=== PATIENT | female | born 1970 | race Caucasian/White ===

== ENCOUNTER → 2023-10-22 11:10 | Outpatient (REF) | payer OTHER, SELFPAY | LOC: RAD 11:10 | PROVIDERS: ATTENDING PHYSICIAN Physician Assistant Medical | DX: R10.31 Right lower quadrant pain (principal); R19.4 Change in bowel habit | CPT/HCPCS: 74177; Q9967 ==

== ENCOUNTER → 2023-10-31 08:34 | Outpatient (REF) | payer OTHER, SELFPAY | LOC: RAD 08:34 | PROVIDERS: ATTENDING PHYSICIAN Physician Assistant Medical | DX: Z13.820 Encounter for screening for osteoporosis (principal) | CPT/HCPCS: 77080 ==

== ENCOUNTER → 2023-11-28 08:36 | Outpatient (REF) | payer OTHER, SELFPAY ==
[2023-11-28 09:23] LABS: % Basophils 0.7 % (0-2); % Eosinophils 1.2 % (0-6); % Immature Granulocytes 0.3 % (0-0.5); % Lymphocytes 44.3 % (20.5-51.1); % Neutrophils 46.5 % (42.2-75.2); Absolute Eosinophils 0.1 10^3/uL (0-0.7); Absolute Lymphocytes 2.6 10^3/uL (1.2-3.4); Absolute Monocytes 0.4 10^3/uL (0.1-0.6); Absolute Neutrophils 2.7 10^3/uL (1.4-6.5); Hematocrit 37.9 % (37.0-47.0); Hemoglobin 12.6 g/dL (12.0-16.0); Mean Corp Hgb Conc. 33.2 g/dL (33.0-37.0); Mean Corpuscular Hgb 28.4 pg (27.0-31.0); Mean Corpuscular Volume 85.4 fL (81.0-99.0); Mean Platelet Volume 10.6 fL (7.4-10.4); Nucleated Red Blood Cells % 0 %; Platelet Count 256 10^3/uL (130-400); Red Blood Cell Count 4.44 10^6/uL (4.20-5.40); Red Cell Dist. Width 13.9 % (11.5-14.5); White Blood Cell Count 5.8 10^3/uL (4.8-10.8)
[2023-11-28 10:22] LABS: ALT (SGPT) 37 U/L (0-35); AST (SGOT) 26 U/L (14-36); Albumin 4.4 g/dl (3.5-5.0); Alkaline Phosphatase 116 U/L (38-126); Blood Urea Nitrogen 19 mg/dl (7-17); Calcium 9.8 mg/dl (8.4-10.2); Carbon Dioxide 28 mmol/L (22-30); Chloride 103 mmol/L (98-107); Glucose 112 mg/dl (70-99); HDL Cholesterol 47 mg/dl; LDL Cholesterol, Calculated 127 mg/dl; Potassium 4.3 mmol/L (3.5-5.1); Sodium 140 mmol/L (135-145); Total Bilirubin 0.6 mg/dl (0.2-1.3); Total Cholesterol 212 mg/dl (50-199); Total Protein 7.3 g/dl (6.3-8.2); Triglyceride 193 mg/dl (10-149); Very Low Density Lipoprotein 38 mg/dl (0-30); eGFR > 60.00
[2023-11-28 10:35] LABS: Free T4 1.27 ng/dl (0.78-2.19)
[2023-11-28 10:49] LABS: TSH 3.09 uIU/ml (0.47-4.68)
[2023-11-28 12:03] LABS: Glycohemoglobin (HgbA1c) 6.1 % (4.0-5.6)
== END ==
LOC: REG 08:36
PROVIDERS: ATTENDING PHYSICIAN Physician Assistant Medical
DX: Z00.00 Encounter for general adult medical examination without abnormal findings (principal); E78.2 Mixed hyperlipidemia; E03.9 Hypothyroidism, unspecified
CPT/HCPCS: 36415; 80053; 80061; 83036; 84439; 84443; 85025

== ENCOUNTER → 2024-02-10 14:13 | Outpatient (REF) | payer OTHER, SELFPAY | LOC: WDC 14:13 | PROVIDERS: ATTENDING PHYSICIAN Physician Assistant; FAMILY PHYSICIAN Physician Assistant Medical | DX: N64.59 Other signs and symptoms in breast (principal) | CPT/HCPCS: 76642 ==

== ENCOUNTER → 2024-05-01 15:45 | Outpatient (REF) | payer OTHER, SELFPAY ==
[2024-05-01 18:54] LABS: Urine Albumin Negative (Neg - Trace); Urine Bilirubin Negative (Negative); Urine Character Very Cloudy (Clear); Urine Color Yellow; Urine Glucose Negative (Negative); Urine Ketone Negative (Negative); Urine Leukocyte Negative (Negative); Urine Nitrite Negative (Negative); Urine Occult Blood Negative (Negative); Urine Specific Gravity 1.025 (<1.030); Urine Urobilinogen Negative (Neg - 1+)
== END ==
LOC: CLAB 15:45
PROVIDERS: ATTENDING PHYSICIAN Obstetrics & Gynecology
DX: N39.0 Urinary tract infection, site not specified (principal)
CPT/HCPCS: 36415; 81003; 87086

== ENCOUNTER → 2024-07-08 16:51 | Outpatient (REF) | payer OTHER, SELFPAY | LOC: RAD 16:51 | PROVIDERS: ATTENDING PHYSICIAN Surgery Plastic and Reconstructive Surgery; FAMILY PHYSICIAN Physician Assistant Medical | DX: Z90.13 Acquired absence of bilateral breasts and nipples (principal) | CPT/HCPCS: 74174; Q9967 ==

== ENCOUNTER → 2024-09-07 15:49 | Outpatient (REF) | payer OTHER, SELFPAY ==
[2024-09-07 17:47] LABS: % Basophils 0.8 % (0-2); % Immature Granulocytes 0.2 % (0-0.5); % Lymphocytes 40.6 % (20.5-51.1); % Monocytes 9.3 % (1.7-9.3); % Neutrophils 48.1 % (42.2-75.2); Absolute Basophils 0.1 10^3/uL (0-0.2); Absolute Eosinophils 0.1 10^3/uL (0-0.7); Absolute Lymphocytes 2.5 10^3/uL (1.2-3.4); Absolute Monocytes 0.6 10^3/uL (0.1-0.6); Absolute Neutrophils 2.9 10^3/uL (1.4-6.5); Hematocrit 36.2 % (37.0-47.0); Hemoglobin 11.9 g/dL (12.0-16.0); Mean Corp Hgb Conc. 32.9 g/dL (33.0-37.0); Mean Corpuscular Hgb 28.7 pg (27.0-31.0); Mean Corpuscular Volume 87.2 fL (81.0-99.0); Mean Platelet Volume 10.8 fL (7.4-10.4); Nucleated Red Blood Cells % 0 %; Platelet Count 213 10^3/uL (130-400); Red Blood Cell Count 4.15 10^6/uL (4.20-5.40); Red Cell Dist. Width 13.6 % (11.5-14.5)
[2024-09-07 17:58] LABS: ALT (SGPT) 40 U/L (0-35); AST (SGOT) 29 U/L (14-36); Albumin 4.2 g/dl (3.5-5.0); Alkaline Phosphatase 99 U/L (38-126); Blood Urea Nitrogen 17 mg/dl (7-17); Calcium 9.2 mg/dl (8.4-10.2); Carbon Dioxide 28 mmol/L (22-30); Chloride 102 mmol/L (98-107); Glucose 107 mg/dl (70-99); Sodium 139 mmol/L (135-145); Total Bilirubin 0.4 mg/dl (0.2-1.3); Total Protein 6.8 g/dl (6.3-8.2); eGFR > 60.00
== END ==
LOC: RAD 15:49
PROVIDERS: ATTENDING PHYSICIAN Surgery Plastic and Reconstructive Surgery; FAMILY PHYSICIAN Surgery
DX: Z01.818 Encounter for other preprocedural examination (principal)
CPT/HCPCS: 36415; 80053; 85025; 93005

== ENCOUNTER 2024-09-30 06:06 | Inpatient (IN) | payer OTHER, SELFPAY ==
[2024-09-30] VITALS (18 sets, daily range): BP systolic 99–135; BP diastolic 62–86; BMI 32.4; BMI 33.9
[2024-09-30] MEDS: LOVENOX 40 MG SC (07:03)
[2024-09-30] MEDS: NORMOSOL-R/PLASMALYTE-A 1000 IV (07:11)
--- NOTE | 2024-09-30 07:29 | W.SUR.PREOP ---
Pre-Operative Surgical Note
-
I have examined this patient prior to the performance of the scheduled procedure.
The patient's condition is unchanged from the time of the current History and
Physical and the patient is able to undergo the scheduled procedure.
--- NOTE | 2024-09-30 17:15 | W.IMMPOSTOP ---
Surgical Immed Post Op Note
-
Primary Surgeon: MERARY Christensen MD
Assisting Surgeon: Elizabeth Liriano MD, Wendi Sanderson MD
Pre-op Diagnosis: h/o breast CA
Post-op Diagnosis: Same
Procedure Performed: Removal of bilateral breast implants, VANNESA flap breast reconstruction
Anesthesia Type: General
Specimen / Cultures: internal mammary lymph nodes, capsule for path
Estimated Blood Loss: 200cc
Complications: None
Operative Findings: as expected, no issues with micro, well perfused flaps
--- NOTE | 2024-09-30 17:15 | OR.RPT ---
Operative Report
Operative Report
Date of Surgery: 09/30/24
Surgeon: Harry Christensen MD
Assembler Dc Field Ring/Co surgeon: Elizabeth Liriano MD
Second Medical Recruiter: Wendi Sanderson MD
Pre-op diagnosis:
1.� Personal history of breast cancer
2. Status post bilateral mastectomies with implant based breast reconstruction
Postop diagnosis: Same
Procedure:
1.� Bilateral removal of saline breast implants without replacement
2.� Bilateral internal mammary lymph node biopsy
3. Bilateral capsulotomies and partial capsulectomies
4. Bilateral breast reconstruction with VANNESA flaps
6. Spy angiography
Anesthesia: General
EBL: 200 cc
Specimens:
1.� Right internal mammary lymph node
2. Right mastectomy skin and soft tissue
3.� Left mastectomy skin and soft tissue
4.� Left internal mammary lymph node
Drains: 4 15 Swedish Nas drains
Complications: none
Indications:
This is a 54-year-old female with a past medical history significant for breast cancer with prior implant based reconstruction done in [facility].� Her right implant had spontaneously deflated. She was interested in moving forward with autologous
reconstruction. Given the anticipated bilateral VANNESA flap breast reconstruction, I asked Dr. Elizabeth Liriano to be involved in her care given the complexity of the case and the need for a second surgeon to do this as safely and efficiently as possible.
Regarding bilateral free flap breast reconstruction,� she understood the nature of the surgery and all of the risk benefits alternatives were discussed at length.� Specific risks included flap failure or thrombosis, hematoma, seroma, poor wound
healing and compromise to the abdominal wall.� All questions were answered and consents were signed.
Operative findings:
The patient was identified in the preoperative area and consents were confirmed. The bilateral breasts were marked out as was the elliptical infraumbilical donor site. All questions were answered. She was brought to the operating room and placed
supine on the operative table.� General anesthesia was induced with an endotracheal tube. The arms were tucked bilaterally and a Issa catheter was placed.� Preoperative Lovenox and antibiotics were administered, and SCDs were placed.� The patient's
bilateral breasts and abdomen were prepped and draped in normal standard fashion using chlorhexidine prep.� A timeout for patient safety was performed.
To start the procedure, Dr. Liriano and I were in the abdomen to initiate the dissection of the abdominal flaps. I dissected the right abdominal flap for left breast reconstruction and Dr. Liriano worked on the left abdomen for right breast
reconstruction. Dr. Liriano assisted me with my portions of the case, and I assisted him with his portions of the case. Please see Dr. Sanderson and Dr. Liriano's separately dictated operative notes. Once I started the intramuscular dissection of the
right flap, Dr. Liriano went up to the chest to prepare the vessels for microvascular transfer and at this time we began functioning as 2 separate teams.
In the abdomen, bilateral VANNESA flaps were dissected out. This began with incising the proposed markings superiorly and dissection with a slight bevel upwards to the level of the fascia. Undermining of the supraumbilical flap continue in the midline
above the umbilicus to the xiphoid. Laterally, this extended to the costal margin. The patient was then flexed at the waist and the lower incision was confirmed to be tenable without undue tension. The patient was returned supine and the lower
marking was incised with a 10 blade. The flaps were then raised laterally to medially be sure to maintain the perforating vessels above the level of the fascia.� On the right side a 2 compressor house operator VANNESA flap was dissected out.� Similarly on the left
side a 4 compressor house operator VANNESA flap had been dissected out.�This involved a tedious intramuscular dissection to minimize the amount of muscle harvested with the flap. The pedicles were dissected down to level of the iliac vessels.
In the chest, the implants were removed bilaterally. Extensive capsulotomies were made to adjust the pockets and a partial capsulectomy was also performed. On the left side, the pectoralis muscle was then split over the third intercostal rib and the
cartilaginous portion of the rib was excised.� The underlying internal mammary vessels were then meticulously and carefully dissected.�Internal mammary lymph nodes were encountered bilaterally and this was excised and sent off for pathologic
evaluation. Once the vessels were fully dissected circumferentially these were allowed to dilate up while attention was turned to the contralateral breast.� A pectoralis block was then performed with marcaine and a 15 Swedish Nas drain was placed
through a stab incision the lateral IMF.� This was secured using a 2-0 Prolene suture.
On the right side, the identical procedure was performed except that the pec was too fibrotic and tethered superiorly to reinset along the chest wall. Again this involved rib resection, and internal mammary vessel dissection.� These vessels were
similarly prepared and allowed to dilate up with papaverine soaked neuro patties. A pectoralis block was similarly performed on this side and a 19 Swedish Nas drain was also placed through a stab incision in the lateral IMF on this side due to the
history of infection. An internal mammary lymph node was also noted on the right side. This was dissected out and sent off for pathologic evaluation.
The right hemiabdominal flap was then transferred up to the left chest first. The microvascular anastomosis was then performed.� This was done using a 2.5mm bed laborer for the venous anastomosis.� The arterial anastomosis was performed with a handsewn
technique using 8-0 nylon suture.� Upon removal of the microvascular clamps there was excellent perfusion of the flap.� The flap was then temporarily inset with deepak and attention was turned to the contralateral side.
The left hemiabdominal flap was then transferred up to the right chest.� The microvascular anastomosis was similarly performed.� On this side a 3.5mm bed laborer was again utilized for the venous anastomosis.� The arterial anastomosis was performed in
the same fashion as the contralateral side.� Again there was excellent perfusion noted upon removal of the vascular clamps.
While the microvascular anastomoses were being performed, Dr. Sanderson was performing the abdominal wall reconstruction.� Again please see her separately dictated operative report for details. Briefly, this involved reapproximation of the muscles
that was divided.� A small piece of Phasix mesh was inset as a underlay with primary fascial closure.� The fascia was closed with interrupted PDS sutures.�
A TAP block was performed bilaterally for postoperative analgesia.� Two 15 Swedish Nas drains were placed in the abdomen.� These were similarly secured using 2-0 Prolene sutures.� The abdominal wall was then closed in a layered fashion.� 2-0 Vicryl
suture was utilized in the Nasir's fascia.� The Insorb dermal stapler was then utilized for reapproximation of the deep dermis.� The superficial skin was then closed using 4-0 Monocryl suture.� The umbilicus was transposed.� This was inset using a
combination of 3-0 Monocryl in the deep dermis and 4-0 nylon suture superficially.
SPY Angiography was then performed to assess the flaps as well as the mastectomy skin. Excellent perfusion was noted throughout. The VANNESA flaps were then inset. The skin was then closed in a layered fashion using 3-0 and 4-0 Monocryl suture.� The
VANNESA flaps were de-epithelialized in all areas that would not be exposed prior to closure.
Doppler signals were identified on both skin islands and there was good punctate bleeding at time of deepithelialization. Signals were marked with 5-0 prolenes.
The wounds were then all dressed and the patient was extubated uneventfully.� All counts were correct at the the completion of the case.� The patient tolerated the procedure very well.� She had an excellent cosmetic outcome.� The patient was then
transferred to the ICU for postoperative�monitoring.
I was the primary surgeon for the left VANNESA flap breast reconstruction and Dr. Liriano was the primary surgeon for the right side. I assisted him in all aspects of his surgery and he assisted me throughout my procedure and we functioned as cosurgeons
throughout the case so that we could operate in 2 separate surgical salcido at all times to maximize safety and efficiency.
Dr. Wendi Sanderson was our second assistant store manager trainee for this case.� Her assistance was critical and medically necessary to allow us to perform this in a safe and timely manner for this patient.� She assisted with retraction, execution, and closure of this
case. She also was responsible for the abdominal wall reconstruction as a primary surgeon.
--- NOTE | 2024-09-30 17:25 | OR.RPT ---
Operative Report
Operative Report
Surgeon: Elizabeth Liriano MD
Insurance Sales Agent: Harry Christensen MD
Second Wind Development Director: Wendi Sanderson MD
Pre-op diagnosis:
1.� Personal history of breast cancer
2. Status post bilateral mastectomies with implant based breast reconstruction
Postop diagnosis: Same
Procedure:
1.� Bilateral removal of saline breast implants without replacement
2.� Bilateral internal mammary lymph node biopsy
3. Bilateral capsulotomies and partial capsulectomies
4. Bilateral breast reconstruction with VANNESA flaps
6. Spy angiography
Anesthesia: General
EBL: 200 cc
Specimens:
1.� Right internal mammary lymph node
2. Right mastectomy skin and soft tissue
3.� Left mastectomy skin and soft tissue
4.� Left internal mammary lymph node
Drains: 4 15 [place]ij[place] Nas drains
Complications: none
Indications:
This is a 54-year-old female with a past medical history significant for breast cancer [place]� Her right implant had spontaneously deflated. She was interested in moving forward with
autologous reconstruction. Given the anticipated bilateral VANNESA flap breast reconstruction, I was asked to be involved in her care given the complexity of the case and the need for a second surgeon to do this as safely and efficiently as possible.
Regarding bilateral free flap breast reconstruction,� she understood the nature of the surgery and all of the risk benefits alternatives were discussed at length.� Specific risks included flap failure or thrombosis, hematoma, seroma, poor wound
healing and compromise to the abdominal wall.� All questions were answered and consents were signed.
Operative findings:
The patient was identified in the preoperative area and consents were confirmed. The bilateral breasts were marked out as was the elliptical infraumbilical donor site. All questions were answered. She was brought to the operating room and placed
supine on the operative table.� General anesthesia was induced with an endotracheal tube. The arms were tucked bilaterally and a Issa catheter was placed.� Preoperative Lovenox and antibiotics were administered, and SCDs were placed.� The patient's
bilateral breasts and abdomen were prepped and draped in normal standard fashion using chlorhexidine prep.� A timeout for patient safety was performed.
To start the procedure, Dr. Christensen and I were in the abdomen to initiate the dissection of the abdominal flaps. I dissected the left abdominal flap for right breast reconstruction and Dr. Christensen worked on the right abdomen for left breast
reconstruction. Dr. Christensen assisted me with my portions of the case, and I assisted him with his portions of the case. Please see Dr. Sanderson and Dr. Christensen's separately dictated operative notes. Once Dr. Christensen started his intramuscular dissection
of his flap, i went up to the chest to prepare the vessels for microvascular transfer and at this time we began functioning as 2 separate teams.
In the abdomen, bilateral VANNESA flaps were dissected out. This began with incising the proposed markings superiorly and dissection with a slight bevel upwards to the level of the fascia. Undermining of the supraumbilical flap continue in the midline
above the umbilicus to the xiphoid. Laterally, this extended to the costal margin. The patient was then flexed at the waist and the lower incision was confirmed to be tenable without undue tension. The patient was returned supine and the lower
marking was incised with a 10 blade. The flaps were then raised laterally to medially be sure to maintain the perforating vessels above the level of the fascia.� On the right side a 2 implementation technician VANNESA flap was dissected out.� Similarly on the left
side a 4 implementation technician VANNESA flap had been dissected out.�This involved a tedious intramuscular dissection to minimize the amount of muscle harvested with the flap. The pedicles were dissected down to level of the iliac vessels.
In the chest, the implants were removed bilaterally. Extensive capsulotomies were made to adjust the pockets and a partial capsulectomy was also performed. On the left side, the pectoralis muscle was then split over the third intercostal rib and the
cartilaginous portion of the rib was excised.� The underlying internal mammary vessels were then meticulously and carefully dissected.�Internal mammary lymph nodes were encountered bilaterally and this was excised and sent off for pathologic
evaluation. Once the vessels were fully dissected circumferentially these were allowed to dilate up while attention was turned to the contralateral breast.� A pectoralis block was then performed with marcaine and a 15 Azerbaij[place] Nas drain was placed
through a stab incision the lateral IMF.� This was secured using a 2-0 Prolene suture.
On the right side, the identical procedure was performed except that the pec was too fibrotic and tethered superiorly to reinset along the chest wall. Again this involved rib resection, and internal mammary vessel dissection.� These vessels were
similarly prepared and allowed to dilate up with papaverine soaked neuro patties. A pectoralis block was similarly performed on this side and a 19 Azerbaij[place] Nas drain was also placed through a stab incision in the lateral IMF on this side due to the
history of infection. An internal mammary lymph node was also noted on the right side. This was dissected out and sent off for pathologic evaluation.
The right hemiabdominal flap was then transferred up to the left chest first. The microvascular anastomosis was then performed.� This was done using a 2.5mm sales consulting director for the venous anastomosis.� The arterial anastomosis was performed with a handsewn
technique using 8-0 nylon suture.� Upon removal of the microvascular clamps there was excellent perfusion of the flap.� The flap was then temporarily inset with deepak and attention was turned to the contralateral side.
The left hemiabdominal flap was then transferred up to the right chest.� The microvascular anastomosis was similarly performed.� On this side a 3.5mm sales consulting director was again utilized for the venous anastomosis.� The arterial anastomosis was performed in
the same fashion as the contralateral side.� Again there was excellent perfusion noted upon removal of the vascular clamps.
While the microvascular anastomoses were being performed, Dr. Sanderson was performing the abdominal wall reconstruction.� Again please see her separately dictated operative report for details. Briefly, this involved reapproximation of the muscles
that was divided.� A small piece of Phasix mesh was inset as a underlay with primary fascial closure.� The fascia was closed with interrupted PDS sutures.�
A TAP block was performed bilaterally for postoperative analgesia.� Two 15 Azerbaij[place] Nas drains were placed in the abdomen.� These were similarly secured using 2-0 Prolene sutures.� The abdominal wall was then closed in a layered fashion.� 2-0 Vicryl
suture was utilized in the Nasir's fascia.� The Insorb dermal stapler was then utilized for reapproximation of the deep dermis.� The superficial skin was then closed using 4-0 Monocryl suture.� The umbilicus was transposed.� This was inset using a
combination of 3-0 Monocryl in the deep dermis and 4-0 nylon suture superficially.
SPY Angiography was then performed to assess the flaps as well as the mastectomy skin. Excellent perfusion was noted throughout. The VANNESA flaps were then inset. The skin was then closed in a layered fashion using 3-0 and 4-0 Monocryl suture.� The
VANNESA flaps were de-epithelialized in all areas that would not be exposed prior to closure.
Doppler signals were identified on both skin islands and there was good punctate bleeding at time of deepithelialization. Signals were marked with 5-0 prolenes.
The wounds were then all dressed and the patient was extubated uneventfully.� All counts were correct at the the completion of the case.� The patient tolerated the procedure very well.� She had an excellent cosmetic outcome.� The patient was then
transferred to the ICU for postoperative�monitoring.
I was the primary surgeon for the right VANNESA flap breast reconstruction and Dr. Bj Christensen was the primary surgeon for the left side. I assisted him in all aspects of his surgery and he assisted me throughout my procedure and we functioned as
cosurgeons throughout the case so that we could operate in 2 separate surgical salcido at all times to maximize safety and efficiency.
Dr. Wendi Sanderson was our second phlebotomist medical lab assistant for this case.� Her assistance was critical and medically necessary to allow us to perform this in a safe and timely manner for this patient.� She assisted with retraction, execution, and closure of this
case. She also was responsible for the abdominal wall reconstruction as a primary surgeon.
--- NOTE | 2024-09-30 18:30 | PTCARENOTE ---
Received pt from OR sedated and unresponsive with oral airway in place and simple mask to 6lnc. Sats 100% with coarse bs b/l anteriorly. Normosol infusing via LAC. R fa flushed and patent. Paddles with good cap refill, cool to touch with
dopplers as charted. Around 1800 all surgeons at bedside to check pt, weak dopplers noted but present. Around 1900 pt woke up, coughing. Oral airway removed and pt placed on room air. was c/o headache and asking for head to be lowered, removed
pillow which improved headache, but then pt c/o 9/10 pain across neck and shoulders, pt given sips of water which she tolerated, then was given tramadol as charted. Report to next shift.
[2024-09-30] MEDS: LR 1000 IV ×2 (18:33→20:13)
[2024-09-30] MEDS: ULTRAM 100 MG PO (19:09)
[2024-09-30 19:12] LABS: Hematocrit 27.1 % (37.0-47.0); Hemoglobin 9.5 g/dL (12.0-16.0); Mean Corp Hgb Conc. 35.1 g/dL (33.0-37.0); Mean Corpuscular Hgb 29.5 pg (27.0-31.0); Mean Corpuscular Volume 84.2 fL (81.0-99.0); Mean Platelet Volume 10.7 fL (7.4-10.4); Platelet Count 172 10^3/uL (130-400); Red Blood Cell Count 3.22 10^6/uL (4.20-5.40); Red Cell Dist. Width 13.2 % (11.5-14.5)
[2024-09-30 19:22] LABS: INR 1.11; PT 14.8 Sec (11.4-14.6)
[2024-09-30 19:23] LABS: APTT 27.5 Sec (23.4-35.0)
[2024-09-30 19:37] LABS: ALT (SGPT) 75 U/L (0-35); AST (SGOT) 90 U/L (14-36); Alkaline Phosphatase 76 U/L (38-126); Blood Urea Nitrogen 9 mg/dl (7-17); Calcium 6.8 mg/dl (8.4-10.2); Carbon Dioxide 25 mmol/L (22-30); Chloride 104 mmol/L (98-107); Estimated Creatinine Clearance 93 ml/min; Glucose 149 mg/dl (70-99); Potassium 4.3 mmol/L (3.5-5.1); Sodium 136 mmol/L (135-145); Total Bilirubin 0.6 mg/dl (0.2-1.3); eGFR > 60.00
[2024-09-30 19:55] LABS: Magnesium 2.1 mg/dl (1.6-2.3); Phosphorus 3.4 mg/dl (2.5-4.5)
[2024-09-30] MEDS: VALIUM 5 MG PO (20:13)
[2024-09-30] MEDS: DILAUDID 0.5 MG IV (20:49)
[2024-09-30] MEDS: ZOFRAN 4 MG IV (20:49)
--- NOTE | 2024-09-30 21:24 | PTCARENOTE ---
Bilateral flapp assessment remains unchanged, as documented. Tramadol did little to relieve pain. Pt states neck pain as chronic, but worse with length of surgery and positioning. Pt also uncomfortable in ordered beach chair position. Valium given
in addition to Tramadol with little relief. Dilaudid ordered and given with much relief. No urine output since post op. HIGH SCHOOL ADMISSIONS REPRESENTATIVE Sarah made aware. 1L bolus given as ordered. Bladder scan unreliable 2/2 post op dressing placement. Pt states she has a
feeling of full bladder. Issa irrigated X1, 625cc clear, yellow urine returned. Pt with relief and resting comfortably in desired positioning. Will monitor closely.
[2024-09-30] MEDS: NSS 1000 IV (22:05)
--- NOTE | 2024-09-30 23:05 | PTCARENOTE ---
Temp 100.4. Jeremie hugger removed, Dr. Christensen made aware and asked nurse to maintain regular blanket on patient to prevent chill/vasospasm. No tylenol at this time. Will monitor closely and reapply jeremie hugger as ordered. Pt resting comfortably.
[2024-09-30] MEDS: ANCEF 10 IV (23:53)
[2024-09-30] MEDS: NEURONTIN 100 MG PO (23:53)
[2024-10-01] VITALS (46 sets, daily range): BP systolic 107–143; BP diastolic 60–84; BMI 35.4
[2024-10-01] MEDS: DILAUDID 0.5 MG IV ×4 (00:06→11:10)
[2024-10-01] MEDS: LR 1000 IV ×3 (02:44→18:16)
[2024-10-01] MEDS: ZOFRAN 4 MG IV ×2 (03:27→20:23)
[2024-10-01 03:33] LABS: Ionized Calcium 1.12 mMOL/L (1.15-1.33)
[2024-10-01 03:42] LABS: Hematocrit 24.5 % (37.0-47.0); Hemoglobin 8.5 g/dL (12.0-16.0); Mean Corp Hgb Conc. 34.7 g/dL (33.0-37.0); Mean Corpuscular Hgb 29.3 pg (27.0-31.0); Mean Corpuscular Volume 84.5 fL (81.0-99.0); Mean Platelet Volume 10.8 fL (7.4-10.4); Platelet Count 171 10^3/uL (130-400); Red Cell Dist. Width 13.3 % (11.5-14.5); White Blood Cell Count 9.6 10^3/uL (4.8-10.8)
[2024-10-01 04:01] LABS: Blood Urea Nitrogen 8 mg/dl (7-17); Calcium 7.7 mg/dl (8.4-10.2); Carbon Dioxide 25 mmol/L (22-30); Chloride 106 mmol/L (98-107); Estimated Creatinine Clearance 93 ml/min; Glucose 121 mg/dl (70-99); Potassium 3.9 mmol/L (3.5-5.1); Sodium 135 mmol/L (135-145); eGFR > 60.00
--- NOTE | 2024-10-01 04:19 | PTCARENOTE ---
Pt temp remains 100.1, peggy hugger on standby. Blankets maintained on patient to prevent vasospasm. Flap checks as documented. Will monitor.
[2024-10-01] MEDS: SYNTHROID 50 MCG PO (06:01)
--- NOTE | 2024-10-01 07:05 | PTCARENOTE ---
Bedside handoff paddle check to her B/L breasts. Incisions STUDENT RECORDS COORDINATOR scabbed on the edges. B/L paddles soft, with good doppler signals. Right breast with scattered pale red/pale maroon ecchymosis noted above her nipple to the right, just above and to the
left of the nippple. Right FA #18 IV site with LR@125ml/hr. Left AC #20g catheter flushed and patent with brisk blood return. Good peripheral pulses. Trace anasarca. Knee-hi SCD's intact. Pt was encouraged to perform ankle pumps for the prevention
of clots and to prepare for ambulation OOB to the chair. She demonstrated her understanding. RA saturation 88%, after nasal cannula just removed for Spo2 99%. 1 liter nasal canula applied with Spo2 now 99%. Shallow breathing. Abdominal binder
intact. Drain stripped and emptied as ordered. They are sutured in place with dressing CDI. Lower abdominal dressing with scant amount of scattered serosanguineous drainage. Beach chair positioned maintained Safe environment maintained.
--- NOTE | 2024-10-01 08:07 | CON.INTV ---
Consultation
Consultation Request
Date/Time Consultation Requested: 10/01
Date/Time Consultation Performed: 10/01
Reason for Consultation: Critical care
Medical History
-
History of Present Illness:
History obtained from the patient, and reviewing hospital records, outpatient records. Patient is a 54-year-old female with history of breast cancer, status post bilateral skin sparing mastectomy, flaps and implant reconstruction. Unfortunate this
was complicated by rupture, insertion of saline implants, rupture. Patient is now status post autologous breast reconstruction with VANNESA flaps on 09/30/2024. We are asked to help from critical care standpoint
Presently she denies any shortness of breath, chest pain, nausea, abdominal pain. Overnight it is noted that she had pain with tachycardia, presently improved
.
PMH: Breast cancer diagnosed 2007, triple negative status post chemotherapy, history of psoriasis. Had bilateral implant with skin sparing mastectomy and reconstruction, complicated by rupture. History of , cholecystectomy, oophorectomy,
appendectomy. She denies any history of blood clots, stroke, heart disease
Past Medical History
Past Medical History: None (See above)
Past Surgical History: None (See above)
Social History
Tobacco: Non-smoker
Alcohol: Occasional
Drug: None
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
Family History
Family History: Other (Mother with ovarian cancer. There is a family history of gastric and breast cancer)
Allergies / Home Medications
Allergies
Allergy/AdvReac Type Severity Reaction Status Date / Time
Penicillins Allergy itching, Verified 09/30/24 06:50
rash
cephalexin [From Keflex] AdvReac Nausea / Verified 09/30/24 16:41
Vomiting
Home Medications
�Medication �Instructions �Recorded �Confirmed �Last Taken �Type
levothyroxine 50 mcg tablet 50 mcg PO DAILY 12/04/12 09/30/24 09/30/24 04:45 History
(Levoxyl)
multivitamin 1 tab PO DAILY 09/23/24 09/30/24 1 Week Ago History
~09/23/24
scopolamine base 1 mg over 3 days 1 mg transdermal ONCE 09/30/24 09/30/24 09/29/24 22:00 History
transdermal patch
Review of Systems
-
All other systems: Negative unless noted
Vitals / Labs / Diagnostic Testing
Vital Signs
Temp Pulse Resp BP Pulse Ox
100.0 F 108 24 130/78 99
10/01/24 07:00 10/01/24 07:15 10/01/24 07:15 10/01/24 07:00 10/01/24 07:15
Lab Data
10/01/24 03:11
10/01/24 03:11
Laboratory Results
09/30/24
18:52
PT 14.8 H
INR 1.11
APTT 27.5
Diagnostic Testing:
Physical Exam
-
HEENT: Normocephalic and Anicteric
Cardiovascular: S1/S2, Regular Rhythm, Murmur (n), Rub (n) and Peripheral Edema (n)
Respiratory: Wheeze (n), Rales (n), Rhonchi (n) and Non-Labored Respirations
GI: Soft, Non Distended and Non Tender
Neurology: Awake, Alert, Oriented and No Motor Deficits (Moves all extremities)
Skin: Good Color and Other (No rash)
General: Comfortable
Assessment
-
54-year-old female with history of triple negative breast cancer status post skin sparing bilateral mastectomy, with reconstruction/implants complicated by multiple ruptures, now status post removal of saline breast implants without replacement,
lymph node biopsy, bilateral breast reconstruction with VANNESA flaps 09/30/2024
S/p saline breast implant removal, lymph node biopsy
Bilateral breast reconstruction with VANNESA flaps 09/30/2024
Postoperative incisional pain
Postoperative anemia
Mild transaminitis
Tachycardia
Conditions present prior to admission
History of breast cancer 2008
Status post chemotherapy
Status post bilateral skin sparing mastectomy with implants
Complicated by multiple rupture
Hypothyroidism
History of appendectomy, cholecystectomy, , oophorectomy
Plan/recommendations
At this time, patient is critically ill but stable
Tachycardia postoperatively noted, this appears to be improved today with pain control
EKG normal sinus rhythm
patient is without shortness of breath, nausea, abdominal pain. She feels her pain is controlled at this time
Moving forward
Continue with current management per surgery protocol
Pain is controlled at this time
Tachycardia improved
Urine output adequate, RYAN drainage noted
Calcium was repleted
Continue IV fluids
Advance diet per surgery
Incentive spirometry, pain control
GI prophylaxis: Add Pepcid, patient takes as outpatient
DVT prophylaxis: On enoxaparin
Reviewed with critical care nursing, respiratory care, pharmacy
We will follow
TCCT 31 min
[2024-10-01] MEDS: THERAGRAN 1 TABLET PO (08:17)
[2024-10-01] MEDS: SENOKOT 8.6 MG PO (08:17)
[2024-10-01] MEDS: COLACE 100 MG PO ×2 (08:17→16:07)
[2024-10-01] MEDS: NEURONTIN 100 MG PO ×2 (08:17→16:07)
[2024-10-01] MEDS: ANCEF 10 IV ×2 (08:17→16:07)
--- NOTE | 2024-10-01 09:28 | PTCARENOTE ---
Grand rounds with the care team. Notified Dr. Kramer of hypocalcemia w/Ionized Ca+ 1.12. Pt also reports she takes Pepcid PRN reflux. She stated that if she takes too many PO medications she gets an upset stomach and some foods trigger this as
well. Will administer Pepcid as ordered. Plan of care also reviewed regarding discontinuance of Issa catheter, OOB to the chair, maintaining beach chair position and hopefully advancing her diet.
[2024-10-01] MEDS: PEPCID 20 MG PO (09:43)
[2024-10-01] MEDS: VALIUM 5 MG PO (09:43)
--- NOTE | 2024-10-01 09:45 | W.PN.ANS.POP ---
Anesthesia Post Operative
- Anesthesia Post Op Note
Vital Signs Stable-See Nursing Note: Yes
Airway Patent: Yes
Adequate Pain Control: Yes
Change in Mental Status: No
Current Postoperative Nausea & Vomiting: No
Anesthesia Complications: No
General Anesthetic Recall: No
Unplanned Admission: No
Post Op Hydration Adequate: Yes
- -
Pt awake and alert- no anesthesia c/o at time of post op visit.
--- NOTE | 2024-10-01 09:52 | PTCARENOTE ---
Valium administered in preparation for transfer to the chair. She was informed that the Valium will prevent muscle spasms in her abdomen with movement. We want to prevent them for the management of pain and the prevention of ruptured sutures.
--- NOTE | 2024-10-01 10:40 | VNURNOTE ---
Home Health Liaison met with patient at bedside to discuss [facility] nurse/therapy, visits, schedule and homebound status. Nurse Fang present during visit. Patient is agreeable and understands that visits at home will be 2-3 x per week to assess and
teach medical and drain management. [facility] brochure provided with contact information. Patient is aware that [facility] will contact them for start of care in 1-2 days after discharge from .
[facility] referral completed in [facility] Port.
--- NOTE | 2024-10-01 11:00 | PTCARENOTE ---
Pt OOB to the chair. Indwelling Issa catheter removed prior to ambulation. Pt maintained 30 degree hip flexion during transfer, now in beach chair position. Using the IS properly to 800ml's. She was again informed that because of the abdominal
binder and analgesia she will not be able to fully expand her rib cage, this puts her at risk for atelectasis and PNA. She verbalized her understanding. Right breast is larger than the left. pt is right hand dominant. Dr. Christensen TT'd this
information. Bilateral breasts same temperature & color with good paddle signals.
--- NOTE | 2024-10-01 11:07 | W.PN.PLAS ---
Today's Communication
-
Postoperative day 1 free flap protocol
Progress Note
Subjective Data
Doing well
Subjective: Issa Removed
Objective Data
Vital Signs
Temp Pulse Resp BP Pulse Ox
100 F 102 18 132/75 99
10/01/24 09:00 10/01/24 10:00 10/01/24 10:00 10/01/24 10:00 10/01/24 10:00
Intake and Output
09/30/24 10/01/24 10/02/24
06:59 06:59 06:59
Intake Total 3250 / 3375 630 / 630
Output Total 1450 / 1615 319 / 319
Balance 1800 / 1760 311 / 311
Intake:
Oral fluids 120 / 120
IV fluids (Total) 1250 / 1375 500 / 500
LR 1250 / 1375 125 / 125
Lr 1,000 ml @ 125 mls/hr IV . 375 / 375
Q8H LEELA Rx#:[id number]
IV piggybacks 1999
Output:
Drain Output (Total) 205 / 295 90 / 90
Left Breast C 35 / 80 45 / 45
Left Lower Abdomen D 75 / 80 5 / 5
Right Breast A 40 / 50 10 / 10
Right Lower Abdomen B 55 / 85 30 / 30
Urine, Issa 1245 / 1320 229 / 229
PEx:
NAD
No increased WOB
Drains serosang with appropriate output, thin
No evidence of bleeding or hematoma
Bilateral breast flaps well perfused in appearance with intact doppler arterial and venous signals, no e/o venous congestion
Routine incisional healing
Lab Results
10/01/24 03:11
10/01/24 03:11
Assessment / Plan
Status post bilateral removal of saline implants and reconstruction of the bilateral breast with D IEP flaps
Postoperative anemia, dilutional and postsurgical. No evidence of ongoing bleeding
Tachycardia as expected postoperatively without evidence of DVT PE or arrhythmia
Pain well-controlled
Free flap breast reconstruction protocol postoperative day 1
Issa out
Out of bed to chair
Lovenox, SCDs
Regular diet
[2024-10-01] MEDS: CALCIUM GLUCONATE 100 IV (11:10)
--- NOTE | 2024-10-01 11:24 | CM ---
CM following re: discharge planning.
Reviewed pt's chart, met with pt.
Pt is a 54 year old female,l admitted with primary dx of POD #1 Status post bilateral mastectomies with implant based breast reconstruction.
Pt reports she lives with and 2 children in a 2SH, 2 steps to enter. 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
CM consult to arrange VN services for RYAN drain care next day of discharge noted. Pt is aware, expressed her understanding. A list of VN vendors provided. Pt preferred [facility]. [facility] and VN liaison is working to have RN available
next day of pt's discharge. Pt stated she will most likely be discharged on Saturday and [facility] RN visit will be scheduled for Saturday.
Please fax discharge instructions at discharge to [facility] at [phone].
PCP: Ludy Alford
Pharmacy: [facility]
D/C plan: home with [facility] RN visit next day of discharge and family support.
CM will follow with discharge plan updates as hospitalization progresses
--- NOTE | 2024-10-01 11:57 | PTCARENOTE ---
Photos sent via TT to Dr. Christensen.
--- NOTE | 2024-10-01 14:30 | PTCARENOTE ---
Right breast signal was reported to be softer than the left while primary RN was on break. Upon returning Paddle chesks performed with primary and covering RN. Paddle signals remain softer on the right. T. 98.8 orally. Jeremie hugger applied on low,
Dr. Christensen notified via TT. Breast are equally warm and soft. Right breast remains larger than the left.
--- NOTE | 2024-10-01 15:05 | PTCARENOTE ---
Oral temp 100.8. Jeremie hugger turned off. Paddle signal to the right breast improved but slightly softer than the left. No changes in color, warmth or firmness.
--- NOTE | 2024-10-01 16:17 | PTCARENOTE ---
pt due to void next hour. She did use commode for 50ml's.
[2024-10-01] MEDS: TYLENOL 650 MG PO (17:11)
[2024-10-01] MEDS: LOVENOX 40 MG SC (17:12)
--- NOTE | 2024-10-01 18:10 | PTCARENOTE ---
Pt unable to void. Purwick placed. Unable to bladder scan due to lower horizontal abdominal dressing with Tegaderm. Will notify provider.
--- NOTE | 2024-10-01 19:05 | PTCARENOTE ---
lower abdominal dressing makes it impossible to bladder scan properly. Pt unable to void. Bhargav BAILEY notified. Straight cath for 270ml's dark concentrated urine.
--- NOTE | 2024-10-01 20:00 | PTCARENOTE ---
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 Q1 paddle checks as documented on work list. RYAN x 4 stripped/emptied. POC discussed w/pt, call mendoza in reach.
--- NOTE | 2024-10-01 21:30 | PTCARENOTE ---
pt still reports nausea, discussed with BDoughertyNP, 20mg IV pepcid ordered/given.
[2024-10-01] MEDS: PEPCID 20 MG IV (21:33)
[2024-10-01] MEDS: NSS (PRESERVATIVE FREE) 8 ML IV (21:33)
[2024-10-01] MEDS: OFIRMEV 100 IV (23:56)
[2024-10-02] VITALS (28 sets, daily range): BP systolic 108–135; BP diastolic 69–85; PULSE 111; O2SAT 95; BMI 35.2
--- NOTE | 2024-10-02 | PTCARENOTE ---
paddle checks continue/unchanged. pt refusing po meds. c/o 05/12 headache but does not want to take pills at this time. discussed with Diane, Ofirmev IV ordered/given. also discussed that pt has not had UO since 6p straight cath, NAIL KEGGER verbalized
to give pt 8hr (2am) to attempt to void and then proceed with straight cath if needed. no further changes.
[2024-10-02] MEDS: COLACE PO (00:20)
[2024-10-02] MEDS: NEURONTIN PO (00:20)
[2024-10-02] MEDS: SENOKOT PO (00:20)
[2024-10-02] MEDS: TYLENOL PO ×4 (00:20→14:41)
--- NOTE | 2024-10-02 02:00 | PTCARENOTE ---
pt reports sensation of full bladder but unable to void on own, straight cathed for 700cc horace/yellow urine.
[2024-10-02] MEDS: LR 1000 IV (03:19)
[2024-10-02 05:17] LABS: Hematocrit 24.3 % (37.0-47.0); Hemoglobin 8.1 g/dL (12.0-16.0); Mean Corp Hgb Conc. 33.3 g/dL (33.0-37.0); Mean Corpuscular Hgb 28.6 pg (27.0-31.0); Mean Corpuscular Volume 85.9 fL (81.0-99.0); Mean Platelet Volume 10.3 fL (7.4-10.4); Platelet Count 169 10^3/uL (130-400); Red Blood Cell Count 2.83 10^6/uL (4.20-5.40); Red Cell Dist. Width 13.8 % (11.5-14.5); White Blood Cell Count 8.3 10^3/uL (4.8-10.8)
[2024-10-02] MEDS: SYNTHROID 50 MCG PO (05:25)
[2024-10-02] MEDS: VALIUM 5 MG PO ×2 (05:26→11:45)
--- NOTE | 2024-10-02 05:30 | PTCARENOTE ---
pt assisted to commode, able to void, prn valium/dilaudid when back to bed. no changes.
[2024-10-02] MEDS: DILAUDID 0.5 MG IV ×3 (05:32→23:04)
[2024-10-02 05:51] LABS: Blood Urea Nitrogen 5 mg/dl (7-17); Calcium 8.4 mg/dl (8.4-10.2); Carbon Dioxide 30 mmol/L (22-30); Chloride 103 mmol/L (98-107); Estimated Creatinine Clearance 96 ml/min; Glucose 108 mg/dl (70-99); Magnesium 1.9 mg/dl (1.6-2.3); Potassium 3.8 mmol/L (3.5-5.1); Sodium 137 mmol/L (135-145); eGFR > 60.00
--- NOTE | 2024-10-02 07:38 | PTCARENOTE ---
s/p handoff. She is in beach chair position. Abdominal binder intact. Drains intact. LR infusing via right fa IV, left AC site flushed and patent. +2-3 anasarca. Diminished breath sounds in the bases, poor inspiratory effort and abdominal binder.
She again was instructed on the importance of using the incentive spirometer several times an hour for the prevention of PNA and atelectasis. I also informed her that she would remain in the chair, and be assisted to the BR, and that physical
therapy will work with her today. Planned pain management for today. She verbalized her understanding..
--- NOTE | 2024-10-02 07:51 | W.PN.INTV ---
Addendum entered and electronically signed by Oliver Kramer MD 10/02/24 20:48:
for CDI
Patient with hypocalcemia
Original Note:
Today's Communication / Plan
Recommendations
Pain control, incentive spirometry
DC IV fluids, advance diet
Follow nausea
PT/OT
Pepcid twice daily
DVT prophylaxis
Assessment
-
54-year-old female with history of triple negative breast cancer status post skin sparing bilateral mastectomy, with reconstruction/implants complicated by multiple ruptures, now status post removal of saline breast implants without replacement,
lymph node biopsy, bilateral breast reconstruction with VANNESA flaps 09/30/2024
S/p saline breast implant removal, lymph node biopsy
Bilateral breast reconstruction with VANNESA flaps 09/30/2024
Postoperative incisional pain
Postoperative anemia
Mild transaminitis
Tachycardia
Conditions present prior to admission
History of breast cancer 2008
Status post chemotherapy
Status post bilateral skin sparing mastectomy with implants
Complicated by multiple rupture
Hypothyroidism
History of appendectomy, cholecystectomy, , oophorectomy
Plan/recommendations
At this time, patient is stable
Complaining of pain but appears to be controlled with Dilaudid
Tachycardia postoperatively noted, this appears to be improved today with pain control
EKG normal sinus rhythm
intermittent nausea noted
Moving forward
Continue with current management per surgery protocol
Dilaudid for pain control
Follow tachycardia
Urine output adequate, RYAN drainage noted
Calcium was repleted
dc IV fluids, advance diet per surgery
hemoglobin 8.1
Follow clinically
Incentive spirometry, pain control
GI prophylaxis: Pepcid twice a day
DVT prophylaxis: On enoxaparin
Reviewed with critical care nursing, respiratory care, pharmacy
Subjective Dataa
Subjective Data
Date of Service:
Date of Service: October 02, 2024
Subjective:
Patient overall feels well. Occasional nausea noted. Tachycardia noted. Continues to get Dilaudid with some improvement. Appetite poor. Straight cath required overnight. Continues with IV fluids.
Objective Data
Data Reviewed
Vital Signs / I&O / Oxygen:
Vital Signs
Temp Pulse Resp BP Pulse Ox
98.4 F 110 14 113/75 97
10/02/24 05:00 10/02/24 06:00 10/02/24 06:00 10/02/24 06:00 10/02/24 06:00
Intake and Output
10/01/24 10/02/24 10/03/24
06:59 06:59 06:59
Intake Total 3250 / 3375 3690 / 3690
Output Total 1450 / 1615 2237 / 2237
Balance 1800 / 1760 1453 / 1453
SaO2 97
Nasal Cannula flow liters per 1
minute
Physical Exam
General: Comfortable
HEENT: Normocephalic and Anicteric
Cardiovascular: S1-S2, Regular Rhythm (Tachy), Murmur (n) and Peripheral Edema (n)
Respiratory: Wheeze (n), Crackles (n), Rhonchi (n), Non-Labored Respirations and Stridor (n)
GI: Soft, Non Distended, Non Tender and Other (Abdominal binder)
Neurology: Awake, Alert and No Motor Deficits (Moves all extremities)
Skin: Rash (n)
Labs/Micro/Reports
Lab Data
10/02/24 05:05
10/02/24 05:05
[2024-10-02] MEDS: COLACE 100 MG PO ×3 (08:20→20:16)
[2024-10-02] MEDS: SENOKOT 8.6 MG PO ×2 (08:21→20:16)
[2024-10-02] MEDS: NEURONTIN 100 MG PO ×3 (08:21→23:04)
[2024-10-02] MEDS: PEPCID 20 MG PO ×2 (08:22→20:16)
[2024-10-02] MEDS: THERAGRAN 1 TABLET PO (08:22)
--- NOTE | 2024-10-02 10:17 | PN.CDI ---
CDI
- -
CDI:
Physician Documentation Request
Admit Date: 09/30/24 06:06
Dear Doctor Williams,
Please review the following and provide your response in the progress notes.
Clinical Indicators:
- Patient admit for b/l breast reconstruction with VANNESA flaps
- 1 gm IV Calcium Gluconate given
Laboratory Tests
09/30/24 10/01/24 10/02/24
18:52 03:11 05:05
Calcium 6.8 L* 7.7 L 8.4
Ionized Calcium 1.12 L
Please provide a diagnosis for the above lab values that were monitored and treatment rendered:
Hypocalcemia
Clinically insignificant abnormal lab value
Other (please specify)
Use of terms such as suspected, likely, concern for, or probable (associated with a specific diagnosis that is being evaluated, monitored, or treated as if it exists) are acceptable and can be coded in the inpatient setting, when documented at the
time of discharge.
Thank you,
Susana Shukla RN
CDI Specialist
Please use your independent medical judgment in providing your response.
--- NOTE | 2024-10-02 10:21 | PN.CDI ---
CDI
- -
CDI:
Physician Documentation Request
Admit Date: 09/30/24 06:06
Dear Doctor Fermin,
Please review the following and provide your response in the progress notes.
Clinical Indicators:
The diagnosis of atelectasis was included in the signed 09/30 CXR.
- 09/30 CXR 'Patchy parenchymal opacity within the mid to lower lungs bilaterally, most likely atelectasis'
- Incentive spirometry q1h ordered
- RN note 'Using the IS properly to 800ml's'
- Diminished breath sounds in lung base
Please indicate in your progress notes if you are in agreement that the above diagnosis is valid for this patient:
____ - Atelectasis is a valid diagnosis (Please include it in your progress notes)
____ - Atelectasis is not a valid diagnosis for this patient
____ - Other
Use of terms such as suspected, likely, concern for, or probable are acceptable for a diagnosis that is being evaluated, monitored or treated as if it exists and can be coded in the inpatient setting, when documented at the time of discharge.
Thank you,
Susana Shukla RN
CDI Specialist
Please use your independent medical judgment in providing your response.
[2024-10-02] MEDS: ULTRAM 100 MG PO (11:44)
--- NOTE | 2024-10-02 13:35 | PTCARENOTE ---
Dr.'s Chapa notified that she had symptomatic tachycardia up to 151 with ambulation with physical therapy. She had palpitations and dizziness. Chair was brought to her in the bianchi and feet elevated. Symptoms resolved shortly thereafter.
Will continue to monitor.
--- NOTE | 2024-10-02 13:57 | CM ---
M following re: discharge planning.
Reviewed pt's chart, met with pt.
Pt is a 54 year old female,l admitted with primary dx of POD #2 Status post bilateral mastectomies with implant based breast reconstruction, continue supportive care. Pt is awre she mostt likely will be discharged home on Saturday.
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
[facility] liaison following. Pt is accepted for VN services/RN visits with start next day of discharge.
Please fax discharge instructions at discharge to [facility] at [phone].
D/C plan: home with [facility] RN visit next day of discharge and family support.
CM will follow with discharge plan updates as hospitalization progresses
[2024-10-02] MEDS: LR IV (14:02)
[2024-10-02] MEDS: LASIX 20 MG IV (15:39)
[2024-10-02] MEDS: TYLENOL 1000 MG PO ×2 (16:54→23:03)
--- NOTE | 2024-10-02 17:06 | W.PN.PLAS ---
Today's Communication
-
POD2 flap protocol q1H flap check through this evening
PT/OT
OOB to ambulate
diureses/fluid mgmt per critical care
Progress Note
Subjective Data
Pain well-controlled, denies shortness of breath
Endorses some lightheadedness on ambulation
Subjective: Tolerating Regular Diet, Ambulatory, Issa Removed and Patient Voided
Objective Data
Vital Signs
Temp Pulse Resp BP Pulse Ox
98.3 F 110 14 113/75 97
10/02/24 16:06 10/02/24 06:00 10/02/24 06:00 10/02/24 06:00 10/02/24 09:17
Intake and Output
10/01/24 10/02/24 10/03/24
06:59 06:59 06:59
Intake Total 3250 / 3375 3690 / 3815 675 / 675
Output Total 1450 / 1615 2237 / 2237 835 / 835
Balance 1800 / 1760 1453 / 1578 -160 / -160
Intake:
Oral fluids 480 / 480 300 / 300
IV fluids (Total) 1250 / 1375 3000 / 3125 375 / 375
LR 1250 / 1375 125 / 125
Lr 1,000 ml @ 125 mls/hr IV . 2875 / 3000 375 / 375
Q8H LEELA Rx#:[id number]
IV piggybacks 1999 / 1999 210 / 210
Output:
Drain Output (Total) 205 / 295 643 / 643 285 / 285
Left Breast C 35 / 80 255 / 255 105 / 105
Left Lower Abdomen D 75 / 80 103 / 103 85 / 85
Right Breast A 40 / 50 105 / 105 30 / 30
Right Lower Abdomen B 55 / 85 180 / 180 65 / 65
Urine, Issa 1245 / 1320 274 / 274
Urine, Voided 350 / 350 550 / 550
Straight cath output 970 / 970
PEx:
NAD
No increased WOB
Drains serosang with appropriate output, thin
No evidence of bleeding or hematoma
Bilateral breast flaps well perfused in appearance with intact doppler arterial and venous signals, no e/o venous congestion
Routine incisional healing
Lab Results
10/02/24 05:05
10/02/24 05:05
Assessment / Plan
Status post bilateral removal of saline implants and reconstruction of the bilateral breast with D IEP flaps
Postoperative anemia, dilutional and postsurgical. No evidence of ongoing bleeding
Tachycardia as expected postoperatively without evidence of DVT PE or arrhythmia
Pain well-controlled
Free flap breast reconstruction protocol postoperative day 2
Issa out, patient voided
Ambulate with PT OT
Lovenox, SCDs
Regular diet
[2024-10-02] MEDS: LOVENOX 40 MG SC (18:34)
--- NOTE | 2024-10-02 19:00 | PTCARENOTE ---
vital signs captured from previous shift, can only verify accuracy of vitals starting at this time for shift.
--- NOTE | 2024-10-02 20:00 | PTCARENOTE ---
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 resting with eyes closed, arouses to voice, oriented x 3. denies pain at this time. ST HR low 100s. RA Sat dropping to 87% when pt asleep, encouraged deep breaths/IS in reach, continues to desat-
1LNC applied, Sat to 95%. B/L paddle checks WNL. RYAN drains x 4 stripped/emptied. call mendoza in reach.
--- NOTE | 2024-10-02 23:15 | PTCARENOTE ---
pt assist x 1 to bathroom to void/brush teeth, back to bed. scheduled meds/prn dilaudid given. no changes in assessment.
[2024-10-03] VITALS (19 sets, daily range): BP systolic 105–138; BP diastolic 59–104; PULSE 114–124; BMI 34.5; BMI 34.6
[2024-10-03 03:52] LABS: Hematocrit 23.2 % (37.0-47.0); Hemoglobin 7.6 g/dL (12.0-16.0); Mean Corp Hgb Conc. 32.8 g/dL (33.0-37.0); Mean Corpuscular Volume 88.5 fL (81.0-99.0); Mean Platelet Volume 10.2 fL (7.4-10.4); Platelet Count 169 10^3/uL (130-400); Red Blood Cell Count 2.62 10^6/uL (4.20-5.40); White Blood Cell Count 7.8 10^3/uL (4.8-10.8)
--- NOTE | 2024-10-03 04:00 | PTCARENOTE ---
ax1 amb to bathroom. no changes in pt assessment.
--- NOTE | 2024-10-03 04:55 | PTCARENOTE ---
desat as low as 82% when sleeping with NC off, pt reports feeling dizzy but no SOB noted, 1LNC reapplied.
[2024-10-03 05:05] LABS: Blood Urea Nitrogen 8 mg/dl (7-17); Calcium 8.2 mg/dl (8.4-10.2); Carbon Dioxide 33 mmol/L (22-30); Chloride 99 mmol/L (98-107); Estimated Creatinine Clearance 94 ml/min; Glucose 97 mg/dl (70-99); Potassium 3.3 mmol/L (3.5-5.1); Sodium 134 mmol/L (135-145); eGFR > 60.00
[2024-10-03] MEDS: SYNTHROID 50 MCG PO (05:41)
[2024-10-03] MEDS: KCL 270 MEQ IV (05:41)
--- NOTE | 2024-10-03 07:08 | W.PN.INTV ---
Addendum entered and electronically signed by Oliver Kramer MD 10/03/24 15:45:
Continue to encourage ambulation, continue mechanical and pharmacological DVT prophylaxis
Heart rate presently improved, 105
Reviewed with primary service
Patient transferred out of ICU. We will sign off
Original Note:
Today's Communication / Plan
Recommendations
Pain control
Would like to give another dose of Lasix today if okay with surgery
Out of bed to chair, ambulate
Follow hemoglobin. Minimize transfusion if possible, defer to surgery
Continue mechanical and pharmacological DVT prophylaxis
Assessment
-
54-year-old female with history of triple negative breast cancer status post skin sparing bilateral mastectomy, with reconstruction/implants complicated by multiple ruptures, now status post removal of saline breast implants without replacement,
lymph node biopsy, bilateral breast reconstruction with VANNESA flaps 09/30/2024
S/p saline breast implant removal, lymph node biopsy
Bilateral breast reconstruction with VANNESA flaps 09/30/2024
Postoperative incisional pain
Postoperative anemia
Mild transaminitis
Tachycardia
Conditions present prior to admission
History of breast cancer 2008
Status post chemotherapy
Status post bilateral skin sparing mastectomy with implants
Complicated by multiple rupture
Hypothyroidism
History of appendectomy, cholecystectomy, , oophorectomy
Plan/recommendations
At this time, patient is stable
Tachycardia may be slightly improved since yesterday
Complaining of pain but appears to be controlled with Dilaudid
EKG normal sinus rhythm
intermittent nausea noted, this continues
Chest x-ray 10/03 with improved aeration bilaterally, better inspiratory effort
Moving forward
Continue with current management per surgery protocol
Dilaudid for pain control, will try to minimize, increase activity, ambulate
Follow tachycardia
EKG consistent with sinus tachycardia
Maintain on DVT prophylaxis
Urine output adequate, RYAN drainage noted
Remains off IV fluids, tolerating diet
hemoglobin 7.6
Defer need for transfusion to surgery, wait for recall abrasion. Would like to avoid blood transfusion if possible
Follow clinically for now
Incentive spirometry, pain control
GI prophylaxis: Pepcid twice a day
DVT prophylaxis: On enoxaparin, recommend mechanical prophylaxis while in bed
Reviewed with critical care nursing, respiratory care
Subjective Dataa
Subjective Data
Date of Service:
Date of Service: October 03, 2024
Subjective:
Overall, patient is feeling well. Denies chest pain, pain is relatively controlled. Denies lightheadedness, dizziness, tachycardia. Nocturnal hypoxemia noted. Heart rate seems to be slightly improved. Negative fluid status noted
Objective Data
Data Reviewed
Vital Signs / I&O / Oxygen:
Vital Signs
Temp Pulse Resp BP Pulse Ox
98.3 F 105 13 116/67 100
10/03/24 03:30 10/03/24 05:23 10/03/24 05:23 10/03/24 05:23 10/03/24 05:23
Intake and Output
10/02/24 10/03/24 10/04/24
06:59 06:59 06:59
Intake Total 3690 / 3815 945 / 945
Output Total 2237 / 2237 1405 / 1405
Balance 1453 / 1578 -460 / -460
SaO2 100
Nasal Cannula flow liters per 1
minute
Physical Exam
General: Comfortable
HEENT: Normocephalic and Anicteric
Cardiovascular: S1-S2, Regular Rhythm (Tachy), Murmur (n) and Peripheral Edema (n)
Respiratory: Wheeze (n), Crackles (n), Rhonchi (n), Non-Labored Respirations, Stridor (n) and Other (Decreased breath sounds, abdominal binder in place)
GI: Soft, Non Distended, Non Tender and Other (Abdominal binder)
Neurology: Awake, Alert and No Motor Deficits (Moves all extremities)
Skin: Cyanosis (n), Jaundice (n) and Rash (n)
Labs/Micro/Reports
Lab Data
10/03/24 03:39
10/03/24 03:39
[2024-10-03] MEDS: DILAUDID 0.5 MG IV ×2 (07:59→13:52)
[2024-10-03] MEDS: COLACE 100 MG PO ×3 (07:59→23:00)
[2024-10-03] MEDS: THERAGRAN 1 TABLET PO (07:59)
[2024-10-03] MEDS: PEPCID 20 MG PO ×2 (07:59→20:13)
[2024-10-03] MEDS: TYLENOL 1000 MG PO ×4 (07:59→23:00)
[2024-10-03] MEDS: NEURONTIN 100 MG PO ×3 (07:59→23:01)
[2024-10-03] MEDS: SENOKOT 8.6 MG PO ×2 (07:59→20:13)
[2024-10-03] MEDS: ZOFRAN 4 MG IV (08:00)
--- NOTE | 2024-10-03 08:00 | PTCARENOTE ---
Received pt @ change of shift. AAOx3, c/o incisional pain @ surgical site 05/12- medicated w prn- see OCT. ST on monitor. SpO2 99% on 1L NC; weaned to RA, SpO2 93%. Episodes of desaturation into high 80's, self resolving back into 90's w deep
breathing; remains on RA. IS/deep breathing exercises encouraged and pt. demonstrates understanding. Auscultated dim breath sounds @ R base and crackles @ L base. +BS, abd binder in place. Poor appetite. RYAN drain x4 w ser/sang drainage. Cont
b/b. Stand by assisted into BR for void and self AM hygiene. S/p BR, stand by assisted into chair. # 18 R FA w K+ rider infusing and #20 L AC patent, dressing c/d/i. Paddle signals obtained per orders- see flow sheet Call mendoza placed w in reach.
--- NOTE | 2024-10-03 10:14 | W.DCSUMMARY ---
Discharge Summary
Discharge Data
Date of Admission: 09/30/24
Date of Discharge: 10/04/24
-
Pending Results: No
Hospital Course
Patient was admitted following DIP flap breast reconstruction. She went to the ICU for flap monitoring, required for 48 hours every hour postop.
She followed a routine postoperative course
She did have some anemia and tachycardia which are to be expected. There is no evidence of ongoing bleeding or hematoma.
She was able to ambulate, void, tolerating regular diet and pain well-controlled on p.o. meds
She was discharged accordingly with close surgical follow-up and drain management. Visiting nurse was arranged
Discharge Plan
-
Patient Disposition: Home with Home Care
Discharge Diagnosis/Procedures: s/p VANNESA flap breast reconstruction
Condition: Good
Diet: Regular
Activity: No strenuous activity
Driving Restrictions: Not until seen by your Dr
Bathing Restrictions: OK to Shower
Other Services: VN
Wound Care: Soap and water, abd pads as needed, abd binder as desired; strip and record drain output twice daily
Referrals:
Ludy Alford PA [Family Provider] -
Rashawn Christensen MD [Active] - (patient stated follow up appointment scheduled on , 10/08/24.)
Prescriptions:
New
tramadol 50 mg Tablet
50 - 100 mg PO Q6HPRN PRN (Reason: severe pain) 14 Days Qty: 24 0RF
acetaminophen [Tylenol Extra Strength] 500 mg Tablet
1,000 mg PO QID PRN (Reason: mild pain) Qty: 240 0RF
docusate sodium 100 mg Capsule
100 mg PO TID PRN (Reason: Constipation) 14 Days Qty: 42 0RF
gabapentin 100 mg Capsule
100 mg PO Q8 90 Days Qty: 270 0RF
diazepam 5 mg Tablet
5 mg PO TIDPRN PRN (Reason: Muscle Spasms) 14 Days Qty: 42 0RF
Continued
levothyroxine [Levoxyl] 50 MCG tablet
50 mcg PO DAILY
multivitamin Tablet
1 tab PO DAILY
Discontinued
scopolamine base 1 mg over 3 days Patch 3 Day
1 mg transdermal ONCE
Patient Comments:
right posterior ear
Discharge Orders:
Discharge Patient (As Directed); Ordered 10/04/24
Ordered By: Rashawn Christensen
Discharge Date and Time
Discharge Date/Time: 10/04/24 16:30
Print Language: LUX[place]
--- NOTE | 2024-10-03 10:26 | W.PN.PLAS ---
Today's Communication
-
Postoperative day 3 free flap protocol
Case management to arrange visiting nurse
Ambulate with nurse assistance
Ensure safety for discharge, if appropriate discharge to home today
Progress Note
Subjective Data
Patient doing well, denies shortness of breath, denies chest pain
Subjective: Tolerating Regular Diet, Ambulatory, Issa Removed and Patient Voided
Objective Data
Vital Signs
Temp Pulse Resp BP Pulse Ox
98.4 F 105 13 116/67 93
10/03/24 07:29 10/03/24 05:23 10/03/24 05:23 10/03/24 05:23 10/03/24 09:39
Intake and Output
10/02/24 10/03/24 10/04/24
06:59 06:59 06:59
Intake Total 3690 / 3815 945 / 945 240 / 240
Output Total 2237 / 2237 1405 / 1405 100 / 100
Balance 1453 / 1578 -460 / -460 140 / 140
Intake:
Oral fluids 480 / 480 300 / 300 240 / 240
IV fluids (Total) 3000 / 3125 375 / 375
LR 125 / 125
Lr 1,000 ml @ 125 mls/hr IV . 2875 / 3000 375 / 375
Q8H [facility] Rx#:[id number]
IV piggybacks 210 / 210 270 / 270
Output:
Drain Output (Total) 643 / 643 505 / 505
Left Breast C 255 / 255 195 / 195
Left Lower Abdomen D 103 / 103 175 / 175
Right Breast A 105 / 105 45 / 45
Right Lower Abdomen B 180 / 180 90 / 90
Urine, Issa 274 / 274
Urine, Voided 350 / 350 900 / 900 100 / 100
Straight cath output 970 / 970
PEx:
NAD
No increased WOB
Drains serosang with appropriate output, thin
No evidence of bleeding or hematoma
Bilateral breast flaps well perfused in appearance with intact doppler arterial and venous signals, no e/o venous congestion
Routine incisional healing
Lab Results
10/03/24 03:39
10/03/24 03:39
Assessment / Plan
Status post bilateral removal of saline implants and reconstruction of the bilateral breast with D IEP flaps
Postoperative anemia, dilutional and postsurgical. No evidence of ongoing bleeding
Tachycardia as expected postoperatively without evidence of DVT PE or arrhythmia
Pain well-controlled
Free flap breast reconstruction protocol postoperative day 3
Issa out, patient voided
Ambulate with PT OT
Lovenox, SCDs
Regular diet
--- NOTE | 2024-10-03 10:33 | PTCARENOTE ---
Dr. Christensen to bedside this AM, abd binder removed; incisions assessed and clean abd pads applied. Abd binder reapplied. RYAN drains drained- see flow sheet. Plan to tentatively d/c later today pending activity increasing. Pt. ambulated into BR for
void and around room after. Tachycardiac into low 130's. Once @ door to , pt. felt slightly dizzy. Stand by assisted back into chair. Dizziness resolved and HR improved back into 110's upon rest. Remains on RA, SpO2 94%. Call kelly majano in
reach.
--- NOTE | 2024-10-03 10:38 | CM ---
Pt is cleared for discharge to home [facility]. Referral sent previously. Plan for next day visit by VN and family support.
Please fax discharge instructions to [facility] at [phone].
--- NOTE | 2024-10-03 13:25 | CON.HOSP ---
Family Physician
-
Family Physician: Ludy Alford
Chief Complaint
-
Tachycardia
History of Present Illness
54 female history of breast cancer s/p bilateral skin sparing mastectomy, flaps implant reconstruction complicated by rupture of the implants necessitating removal saline breast implants without replacement, bilateral and Tylenol mammary lymph node
biopsy, bilateral capsulotomy and partial capsulectomies, bilateral breast reconstruction with D IEP flaps and spy angiography per operative note.
Medicine was asked to evaluate for tachycardia. Per review of HR is between 90s and 120s. EKG from 10/02 demonstrated sinus tachycardia. I did ask nursing to do orthostatic vitals which were negative when I was at bedside.
Medical History
Allergies / Home Medications
Allergies reflects when Allergies were last updated in [facility].
Home Medications with original date entered in [facility]
Allergy/Medication List:
Physical Exam
Vital Signs
Vital Signs
Temp Pulse Resp BP Pulse Ox
99 F 124 22 109/75 94
10/03/24 11:30 10/03/24 13:00 10/03/24 13:00 10/03/24 13:00 10/03/24 12:00
Laboratory Results
-
Laboratory Results
10/03/24 03:39
10/03/24 03:39
PT 14.8 Sec (11.4-14.6) H 09/30/24 18:52
INR 1.11 09/30/24 18:52
APTT 27.5 Sec (23.4-35.0) 09/30/24 18:52
Total Bilirubin 0.6 mg/dl (0.2-1.3) 09/30/24 18:52
AST 90 U/L (14-36) H 09/30/24 18:52
ALT 75 U/L (0-35) H 09/30/24 18:52
Alkaline Phosphatase 76 U/L (38-126) 09/30/24 18:52
Impression / Plan
-
NAD, sitting/resting in bedside chair
Scleral Anicteric
MMM
No JVD
CTABL
Tachycardic but regular, S1/S2
Soft, NT, ND, BS+
Warm, Dry
AAOx3
Calm
Tachycardia, seems more like a physiologic response/appropriate response in a postop. Likely related to pain, deconditioning, I do think she needs to ambulate more in terms of conditioning.
-Without evidence of acute infectious process, afebrile. Without evidence of hypoglycemia. Continue levothyroxine. Has been on chemical and mechanical DVT prophylaxis therefore low clinical suspicion for PE, could consider PE study would defer
this to surgery though if remains the concern.
-Per nursing when asked if she wanted to be discharged she stated that she is anxious about support at home. Therefore I wonder if anxiety is contributing to this tachycardia. Though she is already on diazepam 5 mg 3 times daily as needed and has
not received a dose.
-Continue pain control
-Orthostatics negative
Anemia slowly downtrending potentially related to postoperative blood loss. However remains greater than 7. Minimize transfusions as possible. Transfuse if hemoglobin is less than 7 or if symptomatic.
Hypokalemia replete as needed
S/p VANNESA with plastic surgery.
Will follow peripherally. Please call with any question
--- NOTE | 2024-10-03 14:34 | PTCARENOTE ---
Stand by assisted pt w/ PT to ambulate in room/hallway. Tachycardic into 130's again. Denied dizziness; reported slight lightheadedness. Remains on RA. Assisted back to chair. Tolerating position. to bedside and educated on drain care.
Per Dr. Christensen this AM, up to patients discretion on d/c today. Pt. reported she would like to stay [address] Trent aware. Tele orders received. Call mendoza remains in reach.
--- NOTE | 2024-10-03 15:36 | PTCARENOTE ---
Report given to 2S RN and pt. transferred via wheelchair on front desk monitor w belongings to rm [id number] w significant other. Paddle signals obtained w oncoming RN. No further needs from this RN.
--- NOTE | 2024-10-03 15:52 | PTCARENOTE ---
Patient transferred from ICU to [address] [place] [address].The patient reports her pain at a 6 out 10.She had received Dilaudid shortly before she left the ICU.Will monitor for effectiveness. Vital signs are stable.The patient's is at the bedside.The patient
is in her bed with the call mendoza in reach.
[2024-10-03] MEDS: LOVENOX 40 MG SC (17:39)
[2024-10-04 03:30] VITALS: BP 123/63
[2024-10-04] MEDS: SYNTHROID 50 MCG PO (06:08)
[2024-10-04] MEDS: ZOFRAN 4 MG IV (06:23)
[2024-10-04 07:02] VITALS: BP 130/85
[2024-10-04] MEDS: TYLENOL 1000 MG PO ×2 (08:14→13:26)
[2024-10-04] MEDS: NEURONTIN 100 MG PO ×2 (08:14→15:16)
[2024-10-04] MEDS: PEPCID 20 MG PO (08:15)
[2024-10-04] MEDS: SENOKOT PO (08:18)
[2024-10-04] MEDS: COLACE PO (08:18)
[2024-10-04] MEDS: THERAGRAN PO (08:18)
[2024-10-04] MEDS: DILAUDID 0.5 MG IV (08:28)
--- NOTE | 2024-10-04 10:32 | W.PN.PLAS ---
Today's Communication
-
D/C to home
Ambulate
PO pain control, no further IV meds. Take valium as ordered
Progress Note
Subjective Data
Patient doing well, denies shortness of breath, denies chest pain
Subjective: Tolerating Regular Diet, Ambulatory, Issa Removed and Patient Voided
Objective Data
Vital Signs
Temp Pulse Resp BP Pulse Ox
98.6 F 116 16 130/85 97
10/04/24 07:02 10/04/24 07:02 10/04/24 07:02 10/04/24 07:02 10/04/24 07:02
Intake and Output
10/03/24 10/04/24 10/05/24
06:59 06:59 06:59
Intake Total 945 / 945 1440 / 1440
Output Total 1405 / 1405 428 / 428
Balance -460 / -460 1012 / 1012
Intake:
Oral fluids 300 / 300 1440 / 1440
IV fluids (Total) 375 / 375
Lr 1,000 ml @ 125 mls/hr IV . 375 / 375
Q8H [facility] Rx#:[id number]
IV piggybacks 270 / 270
Output:
Drain Output (Total) 505 / 505 328 / 328
Left Breast C 195 / 195 140 / 140
Left Lower Abdomen D 175 / 175 118 / 118
Right Breast A 45 / 45 25 / 25
Right Lower Abdomen B 90 / 90 45 / 45
Urine, Voided 900 / 900 100 / 100
Other:
Number of approximated MODERATE 2
amounts of urine
PEx:
NAD
No increased WOB
Drains serosang with appropriate output, thin
No evidence of bleeding or hematoma
Bilateral breast flaps well perfused in appearance with intact doppler arterial and venous signals, no e/o venous congestion
Routine incisional healing
Lab Results
10/03/24 03:39
10/03/24 03:39
Assessment / Plan
Status post bilateral removal of saline implants and reconstruction of the bilateral breast with D IEP flaps
Postoperative anemia, dilutional and postsurgical. No evidence of ongoing bleeding
Tachycardia as expected postoperatively without evidence of DVT PE or arrhythmia
Pain well-controlled
Free flap breast reconstruction protocol postoperative day 4
Issa out, patient voided
Ambulate with PT OT
Lovenox, SCDs
Regular diet
--- NOTE | 2024-10-04 11:36 | CM ---
Pt for discharge today
Pt reports she will have family support/assistance at home
Pt reports she has ride home
[facility] to follow
PLan - home with [facility]
[2024-10-04 11:40] VITALS: BP 107/60
[2024-10-04] MEDS: VALIUM 5 MG PO ×2 (12:29→15:16)
[2024-10-04 15:12] VITALS: BP 121/69
[2024-10-04] MEDS: COLACE 100 MG PO (15:16)
== END 2024-10-04 16:30 | disposition home health service (06) | DRG 580 ==
LOC: 2 SOUTH 06:06
PROVIDERS: Nurse Practitioner Family; Nurse Practitioner Primary Care; ADMITTING PHYSICIAN Surgery Plastic and Reconstructive Surgery; CONSULT PHYSICIAN Hospitalist; CONSULT PHYSICIAN Internal Medicine Critical Care Medicine; FAMILY PHYSICIAN Physician Assistant Medical
PROC: 0HPU0JZ Removal of Synthetic Substitute from Left Breast, Open Approach (ICD-10-PCS; 2024-09-30)
PROC: 0HPT0JZ Removal of Synthetic Substitute from Right Breast, Open Approach (ICD-10-PCS; 2024-09-30)
PROC: 0HRV077 Replacement of Bilateral Breast using Deep Inferior Epigastric Artery Perforator Flap, Open Approach (ICD-10-PCS; 2024-09-30)
PROC: 07B90ZX Excision of Left Internal Mammary Lymphatic, Open Approach, Diagnostic (ICD-10-PCS; 2024-09-30)
PROC: 07B80ZX Excision of Right Internal Mammary Lymphatic, Open Approach, Diagnostic (ICD-10-PCS; 2024-09-30)
DX: Z42.1 Encounter for breast reconstruction following mastectomy (principal); D62 Acute posthemorrhagic anemia; E03.9 Hypothyroidism, unspecified; D64.9 Anemia, unspecified; R00.0 Tachycardia, unspecified; E83.51 Hypocalcemia; Z15.01 Genetic susceptibility to malignant neoplasm of breast; Z79.899 Other long term (current) drug therapy; Z80.3 Family history of malignant neoplasm of breast; Z80.41 Family history of malignant neoplasm of ovary; Z85.3 Personal history of malignant neoplasm of breast; Z90.13 Acquired absence of bilateral breasts and nipples; Z90.49 Acquired absence of other specified parts of digestive tract; Z92.21 Personal history of antineoplastic chemotherapy; Z98.82 Breast implant status
CPT/HCPCS: 88304; 88305; 71045; 80048; 80053; 82330; 83735; 84100; 85027; 85610; 85730; 86850; 86900; 86901; 93005; 97116; 97163; A4648; C1781; P9045

== ENCOUNTER 2024-10-11 17:57 | Observation (INO) | payer OTHER, SELFPAY ==
[2024-10-11] VITALS (12 sets, daily range): BP systolic 107–148; BP diastolic 42–88; BMI 32.9; BMI 32.4
--- NOTE | 2024-10-11 11:00 | ED.GENMED ---
History of Present Illness
General
Chief Complaint: DVT/Possible Blood Clot
Source: patient
Exam Limitations: none
Time Seen by Provider: 10/11/24 10:49
Nursing documentation reviewed up to this point in time: agreed with
History of Present Illness
History of Present Illness:
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 She was discharged to home 7 days ago. She states she saw her surgeon 2 days ago and all is healing well and she
has no problem related to the surgery. She is here today because she awakened at 430 this a.m. with significant pain in her left calf. She denies CP or SOB. Denies fever or chills.
.
Past History
Past History
ED Past Medical History: Hypothyroidism
ED Past Surgical History: Appendectomy, Cholecystectomy, , Gynecological (Tubal ligation, bilateral mastectomy 2008), Orthopedic (Left knee meniscus repair 2014, repair of left femoral head) and Other (bilateral mastectomy, reconstruction.
Cancer free for 5 years. VANNESA flap 09/30/2024)
Social History
Tobacco: Non-smoker
Personal:
Living: with family
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
Review of Systems
Review of Systems
Allergies reviewed?: Yes
All Other Systems: ROS reviewed and negative except as documented in HPI and ROS
Constitutional: Denies fever or chills
Respiratory: Denies trouble breathing
Cardiac: Denies chest pain
ABD/GI: Denies abdominal pain, nausea, vomiting, diarrhea, constipated or anorexia
: Denies dysuria, frequency or difficulty voiding
Musculoskeletal: Reports other (Pain left calf); Denies edema
Skin: Reports other (Abdominal binder intact, Nathan-Coombs drain intact, draining small amount serous fluid)
Neurological: Reports no symptoms
Phy Exam
Physical Exam
Physical Exam:
GENERAL: No acute distress. A&Ox3.
CONSTITUTIONAL: Afebrile.
EYES: clear, conjunctivae normal
ENMT: moist mucus membranes
RESPIRATORY: Regular respirations, nonlabored, lungs clear.
CARDIOVASCULAR: Regular rate and rhythm, no murmurs, no rubs.
GI: Soft, abdominal binder intact, normal BS
MUSCULOSKELETAL: Mild tenderness mid left calf. No redness, swelling or warmth. Moves with ease. Well perfused.
SKIN: Warm, dry, pink. Abdominal binder intact, RYAN drain with small amount serosanguineous fluid
PSYCH: Normal mood and affect. Well kept, interactive and appropriate
NEUROLOGIC: Awake, alert and oriented. No focal neurological deficits
Course
Orders/Labs/Results
Orders:
Orders
10/11/24 10:50
US Periph Venous LOWER Ext LT Urgent
Comment:
Reason For Exam: pain
10/11/24 12:59
Complete Blood Count/With Diff Urgent
Comprehensive Metabolic Panel Urgent
Ferritin Urgent
Comment: ADD ON
Iron Urgent
Comment: ADD ON
Total Iron Binding Urgent
Comment: ADD ON
10/11/24 13:01
Acetaminophen [Tylenol] 1,000 mg PO NOW STA
10/11/24 13:50
CT Chest PE Study Urgent
Comment:
Reason For Exam: tachycardia 11 days post op w new DVT
10/11/24 13:52
0.9% Sodium Chloride 1000 ml [Nss] 1,000 ml IV BOLUS
10/11/24 16:05
Apixaban [Eliquis] 10 mg PO NOW STA
10/11/24 16:10
Pier Master Assistant Consult Urgent
Consulting Provider: Oliver Kramer
Was physician already notified: Yes
Reason for consult: DVT, recent DEIP surgery,
PLASTIC SURGERY CONSULT Urgent
Consulting Provider: Rashawn Christensen
Was physician already notified: Yes
Reason for Consult: DVT, recent DEIP surgery,
10/11/24 16:49
Add On- LAB Urgent
Tests Added?: Iron, TIBC, Ferritin
Abnormal Lab Results
10/11/24
12:59
RBC 2.91 L 10^6/uL
(4.20-5.40)
Hgb 8.4 L g/dL
(12.0-16.0)
Hct 26.1 L %
(37.0-47.0)
MCHC 32.2 L g/dL
(33.0-37.0)
RDW 14.8 H %
(11.5-14.5)
Abs Immat Gran (auto) 0.1 H 10^3/uL
(0-0.05)
Absolute Monos (auto) 0.8 H 10^3/uL
(0.1-0.6)
Immature Gran % 0.6 H %
(0-0.5)
Creatinine 0.5 L mg/dL
(0.6-1.0)
Glucose 107 H mg/dl
(70-99)
ALT 61 H U/L
(0-35)
Total Protein 6.1 L g/dl
(6.3-8.2)
10/11/24 12:59
10/11/24 12:59
Vital Signs
Initial and Last Documented VS:
Initial Vital Signs
Temp Pulse Resp BP Pulse Ox
99.6 F 129 20 131/85 100
10/11/24 10:06 10/11/24 10:06 10/11/24 10:06 10/11/24 10:06 10/11/24 10:06
Last Documented Vital Signs
Temp Pulse Resp BP Pulse Ox
99.6 F 109 20 113/52 100
10/11/24 10:06 10/11/24 16:02 10/11/24 16:02 10/11/24 15:00 10/11/24 16:02
MDM/Problems Addressed
Differential Diagnosis Includes:
DVT, PE
MDM/Problems Addressed:
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 She was discharged to home 7 days ago. She states she saw her surgeon 2 days ago and all is healing well and she
has no problem related to the surgery. She is here today because she awakened at 430 this a.m. with significant pain in her left calf. She denies CP or SOB. Denies fever or chills.
Temp 99.6 p.o. NAD
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 There is occlusive thrombus within one of the duplicated veins of the distal left femoral vein. There is also occlusive thrombus within the
left popliteal, peroneal, posterior tibial veins.
CBC: Hgb 8.4 WBC normal
CMP: Unremarkable
Due to recent surgery, anemia and tachycardia, need to start Eliquis, Consulted both Dr. Rivera and Dr. Kramer who request admission and they will see her in a.m.
4:10 p.m.
Pt back from CT PE study
Radiology report read, No PE noted.
Hospitalist notified of admission.
*Critical Care Note
Total Time (30-74mins, 75-104mins- exclusive of procedures): Not Applicable
ED Attending Note
-
Portions of this chart may have been created with voice recognition software.� Occasional wrong word or��sound alike� substitutions may have occurred due to the inherent limitations of voice recognition software.
Discharge Plan
Departure
Patient Disposition: Admit
Date of Disposition: 10/11/24
Time of Disposition: 16:06
Admit to: Med/Surg
Presentation/result/management discussed w/ accepting MD/DO: Hospitalist
Condition: Fair
Discharge Problem:
Acute deep vein thrombosis (DVT) of left lower extremity
Prescriptions:
No Action
levothyroxine [Levoxyl] 50 MCG tablet
50 mcg PO DAILY
multivitamin Tablet
1 tab PO DAILY
tramadol 50 mg Tablet
50 - 100 mg PO Q6HPRN PRN (Reason: severe pain) 14 Days Qty: 24 0RF
acetaminophen [Tylenol Extra Strength] 500 mg Tablet
1,000 mg PO QID PRN (Reason: mild pain) Qty: 240 0RF
docusate sodium 100 mg Capsule
100 mg PO TID PRN (Reason: Constipation) 14 Days Qty: 42 0RF
gabapentin 100 mg Capsule
100 mg PO Q8 90 Days Qty: 270 0RF
diazepam 5 mg Tablet
5 mg PO TIDPRN PRN (Reason: Muscle Spasms) 14 Days Qty: 42 0RF
Referrals:
Earnest Cruz MD [Family Provider] -
Interventions
Interventions:
*Risk Screen - Suicide Last Done: 10/11/24 10:06
*General Assessment Last Done: 10/11/24 11:27
*Neglect/Abuse Screening Last Done: 10/11/24 10:06
ED- Fall Risk Assessment Last Done: 10/11/24 11:27
*ED COVID-19 Vaccine History Last Done: 10/11/24 11:27
ED- Cardiac Assessment Last Done: 10/11/24 10:02
ED- Pulmonary Assessment Last Done: 10/11/24 10:02
ED-Peripheral Vascular Assessment Last Done: 10/11/24 10:02
ED-Skin Assessment Last Done: 10/11/24 10:02
Discharge Date and Time
Print Language: PASHTO
[2024-10-11] MEDS: TYLENOL 1000 MG PO (13:05)
[2024-10-11] MEDS: NSS 1000 IV (14:17)
[2024-10-11 14:55] LABS: % Basophils 0.5 % (0-2); % Eosinophils 3.9 % (0-6); % Immature Granulocytes 0.6 % (0-0.5); % Lymphocytes 22.1 % (20.5-51.1); % Monocytes 8.1 % (1.7-9.3); % Neutrophils 64.8 % (42.2-75.2); Absolute Basophils 0.1 10^3/uL (0-0.2); Absolute Eosinophils 0.4 10^3/uL (0-0.7); Absolute Immature Granulocytes 0.1 10^3/uL (0-0.05); Absolute Lymphocytes 2.2 10^3/uL (1.2-3.4); Absolute Monocytes 0.8 10^3/uL (0.1-0.6); Absolute Neutrophils 6.4 10^3/uL (1.4-6.5); Hematocrit 26.1 % (37.0-47.0); Hemoglobin 8.4 g/dL (12.0-16.0); Mean Corp Hgb Conc. 32.2 g/dL (33.0-37.0); Mean Corpuscular Hgb 28.9 pg (27.0-31.0); Mean Corpuscular Volume 89.7 fL (81.0-99.0); Mean Platelet Volume 9.9 fL (7.4-10.4); Nucleated Red Blood Cells % 0.2 %; Platelet Count 351 10^3/uL (130-400); Red Blood Cell Count 2.91 10^6/uL (4.20-5.40); Red Cell Dist. Width 14.8 % (11.5-14.5); White Blood Cell Count 9.9 10^3/uL (4.8-10.8)
[2024-10-11 14:59] LABS: ALT (SGPT) 61 U/L (0-35); AST (SGOT) 30 U/L (14-36); Albumin 3.6 g/dl (3.5-5.0); Alkaline Phosphatase 118 U/L (38-126); Blood Urea Nitrogen 10 mg/dl (7-17); Calcium 9.3 mg/dl (8.4-10.2); Carbon Dioxide 28 mmol/L (22-30); Chloride 100 mmol/L (98-107); Estimated Creatinine Clearance 92 ml/min; Glucose 107 mg/dl (70-99); Potassium 4.6 mmol/L (3.5-5.1); Sodium 136 mmol/L (135-145); Total Bilirubin 0.6 mg/dl (0.2-1.3); Total Protein 6.1 g/dl (6.3-8.2); eGFR > 60.00
[2024-10-11] MEDS: ELIQUIS 10 MG PO (16:30)
[2024-10-11 17:25] LABS: Iron < 20 ug/dl (37-170)
--- NOTE | 2024-10-11 17:30 | W.PN.HOSP.TC ---
Today's Communication/Plan
-
IV Ferrlecit
Assessment / Plan
Assessment / Plan
Left Leg DVT
Anemia
severe Fe defic
Hx of Breast Cancer 2008
no evidence of active disease
s/p inferior epigastric warper fixer flap reconstruction
P: start Eliquis 10 mg bid
Plastic and Pulm consult
full code
see dictated note
admit obs
Anticipated Discharge: 24 - 48 hours
Subjective/Interval History
-
Date of Service: October 11, 2024
left leg pain, found to have a left leg DVT
Objective Data
-
Labs:
Laboratory Results
10/11/24
12:59
WBC 9.9
Hgb 8.4 L
Hct 26.1 L
Plt Count 351
Sodium 136
Potassium 4.6
Chloride 100
Carbon Dioxide 28
BUN 10
Creatinine 0.5 L
Glucose 107 H
Calcium 9.3
Total Bilirubin 0.6
AST 30
ALT 61 H
Alkaline Phosphatase 118
Vital Signs:
Vital Signs
Temp Pulse Resp BP Pulse Ox
99.6 F 109 20 113/52 100
10/11/24 10:06 10/11/24 16:02 10/11/24 16:02 10/11/24 15:00 10/11/24 16:02
Review of Systems
-
History Source: Patient and Coordinated Provider
Constitutional: Denies Fever
EENT: Reports No Symptoms Reported
Respiratory: Reports No Symptoms
Cardiac: Reports No Symptoms
Abdomen/GI: Reports No Symptoms
Neuro: Reports No Symptoms
Physical Exam
-
General: Well Developed, Well Nourished and No Apparent Distress
HEENT: Normocephalic, Atraumatic and Moist Mucous Membranes
Respiratory: Clear to Auscultation; Negative Wheezes, Rales or Rhonchi
Cardiac: Regular Rhythm and S1/S2
GI: Soft, Nontender and Nondistended
Musculoskeletal: No Clubbing, No Cyanosis and No Edema
[2024-10-11 17:31] LABS: Total Iron Binding Capacity 224 ug/dl (265-497)
--- NOTE | 2024-10-11 18:16 | EDRN ---
Med rec completed at this time w/ Dr. Zarate TT'd at this time.
[2024-10-11] MEDS: NEURONTIN 100 MG PO (20:47)
[2024-10-11] MEDS: FERRLECIT 110 MG IV (22:28)
--- NOTE | 2024-10-11 22:43 | PTCARENOTE ---
Pt arrived to floor from ED at 2054 dx of LLE acute DVT, left calf TTP - pt did not want pain meds at that time. VS WNL. pt able to make all needs known. Discussed plan of care with pt, pt had no questions. Bed in lowest position, call mendoza within
reach.
[2024-10-12] MEDS: SYNTHROID 50 MCG PO (05:28)
[2024-10-12 07:00] VITALS: BP 121/64
[2024-10-12 08:33] LABS: Hematocrit 24.3 % (37.0-47.0); Hemoglobin 7.8 g/dL (12.0-16.0); Mean Corp Hgb Conc. 32.1 g/dL (33.0-37.0); Mean Corpuscular Hgb 28.4 pg (27.0-31.0); Mean Corpuscular Volume 88.4 fL (81.0-99.0); Mean Platelet Volume 9.6 fL (7.4-10.4); Platelet Count 341 10^3/uL (130-400); Red Blood Cell Count 2.75 10^6/uL (4.20-5.40); Red Cell Dist. Width 14.6 % (11.5-14.5); White Blood Cell Count 8.3 10^3/uL (4.8-10.8)
[2024-10-12] MEDS: ELIQUIS 10 MG PO (08:54)
[2024-10-12] MEDS: NEURONTIN 100 MG PO ×2 (08:55→15:53)
[2024-10-12] MEDS: THERAGRAN 1 TABLET PO (08:55)
--- NOTE | 2024-10-12 08:59 | VNURNOTE ---
Chart reviewed. Patient is current with [facility] nursing. Will continue to follow hospital course and DC plans.
[2024-10-12 09:02] LABS: Blood Urea Nitrogen 9 mg/dl (7-17); Calcium 8.9 mg/dl (8.4-10.2); Carbon Dioxide 25 mmol/L (22-30); Chloride 104 mmol/L (98-107); Estimated Creatinine Clearance 91 ml/min; Glucose 102 mg/dl (70-99); Potassium 3.9 mmol/L (3.5-5.1); Sodium 137 mmol/L (135-145); eGFR > 60.00
[2024-10-12] MEDS: TYLENOL 1000 MG PO (09:02)
[2024-10-12 10:03] LABS: Folate 14.8 ng/ml (2.76-20); Vitamin B12 644 pg/ml (239-931)
--- NOTE | 2024-10-12 11:45 | CM ---
Addendum entered by Nany Goodrich 10/12/24 14:01:
Spoke with Nicki from [facility] to do med cost check
Eliquis - 5mg po BID - 30 day co-pay - $35; 90 day co-pay - $70
Will notify pt
Plan - anticipate home with [facility]
Original Note:
Met with pt at bedside
Pt reports she lives with her and 2 children in a 1 story home; 3steps to enter
Independent prior to admission
Recently discharged to home after breast sx - Had [facility] prior to admission
Will have ride a discharge
PCP -Earnest Cruz
Pharm - [facility]
Given OBS letter
Consult for med latif check - Called [facility] - per premium service representative, Oliva, hoang cost would be $709 for a 30 day supply of Eliquis.
Pt eligible for 30 day free trial coupon - will give to patient
Plan - home with [facility]
--- NOTE | 2024-10-12 12:26 | VNURNOTE ---
Plan is for patient to resume VN services. She is currently in OBSV status at . [facility] intake aware of potential DC within 24-48h. Will continue to monitor if OBSV status changes. VN to resume services upon DC.
--- NOTE | 2024-10-12 12:36 | CON.PS ---
Consultation - Plastic Surgery
Consultation Request
Date/Time Consultation Requested: 10/12/24
Date/Time Consultation Performed: 10/12/24
Requesting Provider: Hospitalist
Performing Provider: MERARY Christensen
Reason for Consultation: DVT after VANNESA flap
Medical History
-
Chief Complaint: DVT
History of Present Illness:
Patient is very well-known to me having undergone delayed bilateral D IEP flap breast reconstruction with removal of bilateral silicone gel implants. She had a longstanding history of discomfort from the implants and one had eventually deflated
spontaneously. As such we underwent delayed breast reconstruction with autologous tissue in order to avoid further complications with implants.
She followed a routine postoperative course and was discharged postoperative day 4. She was maintained on SCDs and prophylactic Lovenox prior to surgery and throughout her inpatient stay.
She presented to the emergency department last night with complaints of pain in her lower extremity. Ultrasound was positive for small DVT, multiple locations. Plan was made to start therapeutic dosing of Eliquis. This was administered last
night. No ongoing issues today. Drains remain dry
Allergies / Home Medications
Allergy/AdvReac Type Severity Reaction Status Date / Time
cephalexin [From Keflex] Allergy Nausea / Verified 10/11/24 10:06
Vomiting
Penicillins Allergy itching, Verified 10/11/24 10:06
rash
�Medication �Instructions �Recorded �Confirmed �Type
levothyroxine 50 mcg tablet 50 mcg PO DAILY Thyroid 12/04/12 10/11/24 History
(Levoxyl)
multivitamin 1 tab PO DAILY Supplement 09/23/24 10/11/24 History
acetaminophen 500 mg tablet 1,000 mg (2 x 500 mg) PO QID PRN 10/03/24 10/11/24 Rx
(Tylenol Extra Strength) mild pain #240 tabs
diazepam 5 mg tablet 5 mg PO TIDPRN PRN Muscle Spasms 10/03/24 10/11/24 Rx
14 days #42 tabs
docusate sodium 100 mg capsule 100 mg PO TID PRN Constipation 14 10/03/24 10/11/24 Rx
days #42 caps
gabapentin 100 mg capsule 100 mg PO Q8 90 days #270 caps 10/03/24 10/11/24 Rx
tramadol 50 mg tablet 50 - 100 mg (1 - 2 x 50 mg) PO 10/03/24 10/11/24 Rx
Q6HPRN PRN severe pain 14 days #24
tabs
Physical Exam
Vital Signs
Temp 99.2 F 10/12/24 07:00
Temp route: Oral 10/12/24 07:00
Pulse 109 10/12/24 07:00
Resp Rate 16 10/12/24 07:00
Blood pressure 121/64 10/12/24 07:00
Blood pressure extremity used: Right upper arm 10/12/24 07:00
Position: Lying 10/12/24 07:00
MAP (cuff-Deric Monitor) 97 10/11/24 20:00
SaO2 98 10/12/24 07:00
Oxygen Mode of Delivery Room air 10/12/24 07:00
Can the patient verbally communicate their pain? Yes 10/12/24 09:02
Pain scale ratin 10/12/24 09:02
Actual Weight 155 lb 3 oz 10/11/24 20:55
Body Mass Index (BMI) 32.4 10/11/24 20:55
physical exam:
No acute distress
No increased work of breathing
Drain serous with appropriate output
No evidence of hematoma or ongoing bleeding
Bilateral breast flaps well-perfused
Abdominal incision intact with routine healing
Lab Results
10/12/24 07:25
10/12/24 07:25
Assessment / Plan
-
s/p VANNESA flap breast reconstruction with LLE DVT, no PE
Agree with therapeutic anticoagulation
No ongoing issues with surgical healing, no evidence of bleeding or hematoma
Drain thin and serous
Agree with iron supplementation for anemia
F/u on Saturday for drain removal
Data Reviewed
-
CT Scan: Report Reviewed by me
Ultrasound: Report Reviewed by me
--- NOTE | 2024-10-12 13:01 | W.PN.HOSP.TC ---
Today's Communication/Plan
-
dc home on Eliquis; PCP f/u
oral iron; PCP f/u
Assessment / Plan
Assessment / Plan
Assessment:
acute LLE DVT, provoked from recent surgery
- US: occlusive thrombus within one of the duplicated veins of the distal left femoral vein. There is also occlusive thrombus within the left popliteal, peroneal, posterior tibial veins.
- continue Eliquis; loading sequence - coupon provided
- OP PCP f/u
s/p inferior epigastric liquid center assembler flap reconstruction
Hx of Breast Cancer 2008
- discussed with Dr. Christensen and outpatient f/u Saturday
Anemia
iron deficiency
- IV Iron
- oral iron at discharge
- PCP f/u
hypothyroidism - on replacement
Code: Full
More than 30 minutes spent in discharge including
Final examination of the patient
Summarizing hospital stay
Instructions for continuing care to all relevant caregivers
Preparation of discharge records, prescriptions, and referral forms
Total time spent (in minutes): 41
Anticipated Discharge: Today
Subjective/Interval History
-
Date of Service: October 12, 2024
no complaints, resting comfortably
Objective Data
-
Labs:
Laboratory Results
10/12/24
07:25
WBC 8.3
Hgb 7.8 L
Hct 24.3 L
Plt Count 341
Sodium 137
Potassium 3.9
Chloride 104
Carbon Dioxide 25
BUN 9
Creatinine 0.5 L
Glucose 102 H
Calcium 8.9
Vital Signs:
Vital Signs
Temp Pulse Resp BP Pulse Ox
99.2 F 109 16 121/64 98
10/12/24 07:00 10/12/24 07:00 10/12/24 07:00 10/12/24 07:00 10/12/24 07:00
I&O
10/11/24 10/12/24 10/13/24
06:59 06:59 06:59
Intake Total 350 / 350
Output Total
Balance 330 / 330
Physical Exam
-
General: No Apparent Distress
HEENT: Normocephalic and Atraumatic
Respiratory: Negative Wheezes
Cardiac: Regular Rhythm and S1/S2
GI: Soft and Nontender
Neuro: AO x 3
Psych: Calm
Data Reviewed
-
Total Time Spent with Patient (in minutes): 41
Labs: Labs Reviewed by me
--- NOTE | 2024-10-12 13:10 | W.DS.TRANS ---
DC Summary - Senior Account Director
-
Discharge Instructions:
Discharge Diagnosis/Procedures acute LLE DVT, anemia
Diet Regular
Activity As tolerated
Others Tests CT chest in 6-8 weeks. repeat US in 3 months -
PCP can arrange both
Instructions:
Stand-Alone Forms:
Changes to Home Medications: No
Discharge Medications:
DC Medications w/original date entered in [employer]
levothyroxine 50 mcg tablet (Levoxyl) 50 mcg PO DAILY Thyroid 12/04/12
multivitamin 1 tab PO DAILY Supplement 09/23/24
acetaminophen 500 mg tablet (Tylenol Extra Strength) 1,000 mg (2 x 500 mg) PO QID PRN mild pain #240 tabs 10/03/24
diazepam 5 mg tablet 5 mg PO TIDPRN PRN Muscle Spasms 14 days #42 tabs 10/03/24
docusate sodium 100 mg capsule 100 mg PO TID PRN Constipation 14 days #42 caps 10/03/24
gabapentin 100 mg capsule 100 mg PO Q8 90 days #270 caps 10/03/24
tramadol 50 mg tablet 50 - 100 mg (1 - 2 x 50 mg) PO Q6HPRN PRN severe pain 14 days #24 tabs 10/03/24
apixaban 5 mg tablet (Eliquis) 5 mg PO DIRECTED #74 tabs 10/12/24
ferrous sulfate 325 mg (65 mg iron) tablet 325 mg PO DAILY #100 tabs 10/12/24
Home Medication Changes
Pending Results: No
Total time spent discharging patient (in min): 41
[2024-10-12] MEDS: FERRLECIT 110 MG IV (13:52)
[2024-10-12 15:38] VITALS: BP 122/72
== END 2024-10-12 16:40 | disposition home or self-care (01) ==
LOC: 2 SOUTH 17:57
PROVIDERS: Registered Nurse; ADMITTING PHYSICIAN Internal Medicine; ATTENDING PHYSICIAN Internal Medicine; CONSULT PHYSICIAN Surgery Plastic and Reconstructive Surgery; EMERGENCY PHYSICIAN Student in an Organized Health Care Education/Training Program; FAMILY PHYSICIAN Family Medicine
DX: I82.412 Acute embolism and thrombosis of left femoral vein (principal); I82.432 Acute embolism and thrombosis of left popliteal vein; R00.0 Tachycardia, unspecified; I82.442 Acute embolism and thrombosis of left tibial vein; Z79.01 Long term (current) use of anticoagulants; Z85.3 Personal history of malignant neoplasm of breast; D50.9 Iron deficiency anemia, unspecified; Z86.718 Personal history of other venous thrombosis and embolism; E03.9 Hypothyroidism, unspecified; Z79.890 Hormone replacement therapy; Z90.13 Acquired absence of bilateral breasts and nipples; Z90.49 Acquired absence of other specified parts of digestive tract; Z98.51 Tubal ligation status; M79.605 Pain in left leg
CPT/HCPCS: 71275; 80048; 80053; 82607; 82728; 82746; 83540; 83550; 85025; 85027; 93971; 96360; 99285; G0378; J2916; Q9967

== ENCOUNTER → 2024-11-13 16:26 | Outpatient (REF) | payer OTHER, SELFPAY | LOC: RAD 16:26 | PROVIDERS: ATTENDING PHYSICIAN Internal Medicine Gastroenterology; FAMILY PHYSICIAN Family Medicine | DX: R79.89 Other specified abnormal findings of blood chemistry (principal) | CPT/HCPCS: 76700 ==

== ENCOUNTER 2024-11-13 23:06 | Inpatient (IN) | payer OTHER, SELFPAY ==
[2024-11-13 17:40] VITALS: BP 143/89
[2024-11-13 18:53] VITALS: BMI 30.9
[2024-11-13 19:02] VITALS: BP 134/64
[2024-11-13] MEDS: NSS 1000 IV (19:09)
[2024-11-13 19:11] LABS: % Basophils 0.4 % (0-2); % Eosinophils 1.5 % (0-6); % Immature Granulocytes 0.3 % (0-0.5); % Lymphocytes 28.6 % (20.5-51.1); % Monocytes 9.2 % (1.7-9.3); Absolute Eosinophils 0.1 10^3/uL (0-0.7); Absolute Lymphocytes 2.1 10^3/uL (1.2-3.4); Absolute Monocytes 0.7 10^3/uL (0.1-0.6); Absolute Neutrophils 4.5 10^3/uL (1.4-6.5); Hematocrit 30.6 % (37.0-47.0); Hemoglobin 9.6 g/dL (12.0-16.0); Mean Corp Hgb Conc. 31.4 g/dL (33.0-37.0); Mean Corpuscular Hgb 26.6 pg (27.0-31.0); Mean Corpuscular Volume 84.8 fL (81.0-99.0); Mean Platelet Volume 9.8 fL (7.4-10.4); Nucleated Red Blood Cells % 0 %; Platelet Count 262 10^3/uL (130-400); Red Blood Cell Count 3.61 10^6/uL (4.20-5.40); Red Cell Dist. Width 14.6 % (11.5-14.5); White Blood Cell Count 7.4 10^3/uL (4.8-10.8)
--- NOTE | 2024-11-13 19:13 | ED.GENMED ---
History of Present Illness
General
Chief Complaint: Post Operative Problem(s)
Source: patient
Exam Limitations: none
Time Seen by Provider: 11/13/24 18:11
Nursing documentation reviewed up to this point in time: agreed with
History of Present Illness
History of Present Illness:
54-year-old female presenting to the emergency department today with concerns of redness swelling burning sensation in the lower abdomen. Previously had a D IEP flap surgery 6 weeks ago. Was otherwise feeling well until today. No fevers. No
vaginal symptoms changes in bowel movements no vomiting
Past History
Past History
ED Past Medical History: Hypothyroidism
ED Past Surgical History: Appendectomy, Cholecystectomy, , Gynecological (Tubal ligation, bilateral mastectomy 2008), Orthopedic (Left knee meniscus repair 2014, repair of left femoral head) and Other (bilateral mastectomy, reconstruction.
Cancer free for 5 years. VANNESA flap 09/30/2024)
Social History
Tobacco: Non-smoker
Personal:
Living: with family
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
Review of Systems
Review of Systems
Allergies reviewed?: Yes
All Other Systems: ROS reviewed and negative except as documented in HPI and ROS
Phy Exam
Physical Exam
Physical Exam:
GENERAL: Alert , in no apparent distress
EYE: pupils equal and reactive
NECK: Supple, no significant adenopathy.
ENT: o/p clr, mmm.
CARDIAC: Regular rate and rhythm .
LUNGS: Clear breath sounds bilaterally, no acute respiratory distress, no wheezes/rales/rhonchi
ABDOMEN: Significant redness swelling warmth to the lower abdomen mainly surrounding the previous surgical incision which seems to be healed well no dehiscence the upper abdomen is soft, without focal tenderness, no r/g, no cvat
NEUROLOGICAL: Alert and oriented, no focal neuro deficits
SKIN: Warm and dry, skin intact.
MUSCULOSKELETAL: No edema, well perfused.
PSYCH: Normal and appropriate interaction.
Course
Orders/Labs/Results
Orders:
Orders
11/13/24 18:33
0.9% Sodium Chloride 1000 ml [Nss] 1,000 ml IV BOLUS
11/13/24 18:34
CT Abd/Pel (IV only)-[facility] only Urgent
Comment:
Reason For Exam: lower abd pain redness warmth, recent surgery
11/13/24 19:04
Complete Blood Count/With Diff Urgent
Comprehensive Metabolic Panel Urgent
Lactic Acid Urgent
Blood Culture Q30M
SARI Source: Blood/Venous
Specimen Description:
11/13/24 19:27
Vancomycin [Vancocin] 1,750 mg 0.9% Sodium Chloride 500 ml [Nss] 500 ml IV NOW
11/13/24 20:55
Blood Culture Q30M
SARI Source: Blood/Venous
Specimen Description:
11/13/24 21:54
Diphenhydramine [Benadryl] 50 mg IV NOW STA
Famotidine [Pepcid] 20 mg IV NOW STA
11/13/24 22:29
Wound Culture [Wound/Abscess/Other Culture] Urgent
SARI Source: Abdomen
Specimen Description:
Date Specimen was Collected: 11/13/24
Time Specimen was Collected: 22:46
11/13/24 22:34
Admit/Transfer Patient As Directed
Co-Sign Provider:
Level of Care: Inpatient admission
Assign to:: Medical/Surgical
Physician / Group: htay
Diagnosis: abscess
Reason for Hospitalization: abscess
Expected length of stay greater than two midnights?: Yes
ELOS- Estimated Length of Stay in days: 3
I certify the patient meets the requirements for IP care: Yes
11/13/24 22:35
Code Status As Directed
Resuscitation Status: Full Code
Urinalysis Reflex To Culture Urgent
Date Specimen was Collected: 11/13/24
Time Specimen was Collected: 22:21
PRN Pain Medication Management As Directed
May give lesser potent ordered pain med per pt: Yes
preference::
Protocol:: Medication orders for pain may be administered in a
manner that supports deferring to patient preference
when the pt is:
- Requesting an ordered lesser potent pain medication.
Least to most potent pain medications are defined
as: acetaminophen < NSAID < tramadol < opioids
(morphine, oxycodone, hydromorphone).
- Requesting a lesser dose of the same medication IF
ORDERED.
- Requesting a less intrusive route of administration
if both routes are prescribed by the provider (PO <
IV).
Abnormal Lab Results
11/13/24
19:04
RBC 3.61 L 10^6/uL
(4.20-5.40)
Hgb 9.6 L g/dL
(12.0-16.0)
Hct 30.6 L %
(37.0-47.0)
MCH 26.6 L pg
(27.0-31.0)
MCHC 31.4 L g/dL
(33.0-37.0)
RDW 14.6 H %
(11.5-14.5)
Absolute Monos (auto) 0.7 H 10^3/uL
(0.1-0.6)
Creatinine 0.5 L mg/dL
(0.6-1.0)
Glucose 185 H mg/dl
(70-99)
ALT 51 H U/L
(0-35)
Alkaline Phosphatase 128 H U/L
(38-126)
Total Protein 6.2 L g/dl
(6.3-8.2)
11/13/24 19:04
11/13/24 19:04
Vital Signs
Initial and Last Documented VS:
Initial Vital Signs
Temp Pulse Resp BP Pulse Ox
98.5 F 109 16 143/89 99
11/13/24 17:40 11/13/24 17:40 11/13/24 17:40 11/13/24 17:40 11/13/24 17:40
Last Documented Vital Signs
Temp Pulse Resp BP Pulse Ox
98.4 F 110 18 138/82 100
11/13/24 21:13 11/13/24 21:13 11/13/24 21:13 11/13/24 21:13 11/13/24 21:13
MDM/Problems Addressed
MDM/Problems Addressed:
54-year-old female presenting to the emergency department today with concerns of lower abdominal discomfort. Previously site of VANNESA flap 6 weeks ago. Otherwise was healing well. On physical examination patient with redness warmth induration to
lower abdomen. Concern for infection and abscess. Was started on vancomycin with culture sent. CT scan confirming abscess to the abdominal wall. Plan to admit for further treatment and potential IR drainage. Case was discussed with patient's
surgeon Dr. Christensen
*Critical Care Note
Total Time (30-74mins, 75-104mins- exclusive of procedures): Not Applicable
ED Attending Note
-
Portions of this chart may have been created with voice recognition software.� Occasional wrong word or��sound alike� substitutions may have occurred due to the inherent limitations of voice recognition software.
Discharge Plan
Departure
Patient Disposition: Admit
Date of Disposition: 11/13/24
Time of Disposition: 22:52
Admit to: Med/Surg
Admit to doctor: Cely
Presentation/result/management discussed w/ accepting MD/DO: Hospitalist
Patient with high blood pressure during this ER visit?: No
Condition: Good
Covid-19: Not Applicable
Discharge Problem:
Abdominal abscess
Prescriptions:
No Action
levothyroxine 50 MCG tablet
50 mcg PO DAILY
gabapentin 100 mg capsule
300 mg PO HS
Eliquis 5 mg tablet
5 mg PO BID
Theragen Tablet
1 tab PO DAILY
Referrals:
Ludy Alford PA [Family Provider] -
Interventions
Interventions:
*Risk Screen - Suicide Last Done: 11/13/24 17:41
*General Assessment Last Done: 11/13/24 20:05
*Neglect/Abuse Screening Last Done: 11/13/24 17:41
*ED- Fall Risk Assessment Last Done: 11/13/24 20:05
*ED COVID-19 Vaccine History Last Done: 11/13/24 20:05
ED-Skin Assessment Last Done: 11/13/24 20:05
Discharge Date and Time
Print Language: MACEDONIAN
[2024-11-13 19:44] LABS: ALT (SGPT) 51 U/L (0-35); AST (SGOT) 31 U/L (14-36); Albumin 3.5 g/dl (3.5-5.0); Alkaline Phosphatase 128 U/L (38-126); Blood Urea Nitrogen 10 mg/dl (7-17); Calcium 9.3 mg/dl (8.4-10.2); Carbon Dioxide 27 mmol/L (22-30); Chloride 101 mmol/L (98-107); Estimated Creatinine Clearance 89 ml/min; Glucose 185 mg/dl (70-99); Potassium 3.6 mmol/L (3.5-5.1); Sodium 136 mmol/L (135-145); Total Bilirubin 0.4 mg/dl (0.2-1.3); Total Protein 6.2 g/dl (6.3-8.2); eGFR > 60.00
[2024-11-13] MEDS: VANCOCIN 535 MG IV (20:53)
[2024-11-13 21:13] VITALS: BP 138/82
[2024-11-13] MEDS: BENADRYL 50 MG IV (21:59)
[2024-11-13] MEDS: PEPCID 20 MG IV (22:03)
--- NOTE | 2024-11-13 22:10 | HPS.HSE ---
Family Physician
-
Family Physician: Ludy Alford
Chief Complaint
-
VANNESA site redness and pain
History of Present Illness
54-year-old female With past medical history for breast cancer, thyroid disease, mastectomy presenting to the emergency department today with concerns of redness swelling burning sensation in the mid lower abdomen VANNESA site. Previously had a
VANNESA flap surgery 6 weeks ago. stated, she felt some burning yesterday, today it was more and red and painful. denied fever, chills, chest pain, sob. denied OZUNA,dizzy or syncope. denied abdominal pain,n,v,d. denied dysuria or hematuria.
Made patient received vancomycin in ER. Wound culture and blood culture sent from ER
Medical History
Past Medical History
Past Medical History: Reports Other
Additional Past Medical History:
Breast cancer
Thyroid disease
3 blood clot in left leg
Past Surgical History: Reports Other
Additional Past Surgical History:
Appendectomy
Ovaries and tubes removed
Cholecystectomy
Double mastectomy with reconstructive surgery
Breast implant throat placement
D IEP flap
Social History
Tobacco: Non-smoker
Alcohol: Occasional
Drug: None
Family History
Family History: Not pertinent
Allergies / Home Medications
Allergies reflects when Allergies were last updated in [employer].
Home Medications with original date entered in [employer]
Allergy/Medication List:
Allergies
Allergy/AdvReac Type Severity Reaction Status Date / Time
cephalexin [From Keflex] Allergy Nausea / Verified 11/09/24 14:51
Vomiting
Penicillins Allergy itching, Verified 11/09/24 14:51
rash
Home Medications
levothyroxine 50 mcg tablet 50 mcg PO DAILY Thyroid 12/04/12
apixaban 5 mg tablet (Eliquis) 5 mg PO BID 11/02/24
gabapentin 100 mg capsule 300 mg PO HS 11/02/24
therapeutic multivitamin 1 tab PO DAILY 11/13/24
Review of Systems
-
Constitutional: Reports No Symptoms
EENT: Reports No Symptoms
Respiratory: Reports No Symptoms
Cardiac: Reports No Symptoms
Abdomen/GI: Reports No Symptoms
: Reports No Symptoms
Musculoskeletal: Reports No Symptoms
Skin: Reports Other (D IEP incision right)
Neurological: Reports No Symptoms
Endocrine: Reports No Symptoms
Hematologic/Lymphatic: Reports No Symptoms
Psych: Reports No Symptoms
Physical Exam
Vital Signs
Vital Signs
Temp Pulse Resp BP Pulse Ox
98.4 F 110 18 138/82 100
11/13/24 21:13 11/13/24 21:13 11/13/24 21:13 11/13/24 21:13 11/13/24 21:13
Physical Exam
General: Well Developed, Well Nourished and No Apparent Distress
HEENT: NormoCephalic, Moist mucous membranes and Atraumatic
Respiratory: Clear
Cardiac: S1/S2 and Regular Rhythm; No Murmur or Rub
GI: Soft, Non Tender, Non Distended and Normal Bowel Sounds; No Organomegaly
Rectal: Deferred by Provider
Musculoskeletal: No Clubbing, No Cyanosis and No Edema
Skin: Rash and Other (VANNESA incision red, incision popped)
Neuro: Nonfocal/grossly intact
Psych: Calm
Laboratory Results
-
11/13/24 19:04
11/13/24 19:04
Laboratory Results
Lactic Acid 1.0 mmol/L (0.7-2.0) 11/13/24 19:04
Total Bilirubin 0.4 mg/dl (0.2-1.3) 11/13/24 19:04
AST 31 U/L (14-36) 11/13/24 19:04
ALT 51 U/L (0-35) H 11/13/24 19:04
Alkaline Phosphatase 128 U/L (38-126) H 11/13/24 19:04
Data Reviewed
-
CT Scan: Report Reviewed by me
Lab Data: Labs Reviewed by me
Impression/Plan
-
#Lower abdominal abscess of the VANNESA procedure
-CT with impression tatus post VANNESA flap reconstruction.Focal peripherally enhancing collection within the anterior pelvic wall, most likely representing an abscess, given the history of redness and swelling.
-Blood culture sent from ER
-wound culture sent from ER
-iv vanco continued
-IR consulted
-Tylenol prn for fever and pain
# Anemia Iron deficiency
- hemoglobin stable at 9.5
-No active bleeding
-Trend hemoglobin
#Left leg deep vein thrombosis.
-Eliquis continued
# History of breast cancer in 2008 with apparently no evidence of
active disease.
-Status post inferior epigastric perforated flap reconstruction.
-Follows Dr. Christensen as outpatient
#hypothyroidism - on replacement
#CODE status
-full code
--- NOTE | 2024-11-13 22:31 | W.PN.UPDATE ---
Update Note
Progress Note Update
This note serves as an addendum to the H&P by skirt trimmer MARVIN
Lupe MARSHA
HPI
54F HX removal of bilateral breast implants, VANNESA flap breast reconstruction ( 09/30/24) complicated by post op provoked Lt Chuck DVT, currently on Eliquis, Hypothyroid seen at ER:
- concerns of redness swelling burning sensation in the lower abdomen.
- Previously had a D IEP flap surgery 6 weeks ago. on 09/30/24 with Plastic surgeon ( Dr Christensen)
ROS:
No fevers.
No vaginal symptoms
No changes in bowel movements no vomiting
PHX; see above
Reviewed VS: unremarkable
PE
Gen:Not toxic
HEENT: anicteric
Neck: supple
Lungs: CTA
Cor: RRR S1 S2
Abdomen:
- Significant redness swelling warmth to the lower abdomen mainly surrounding the previous surgical incision site which seems to be healed well no dehiscence
- the upper abdomen is soft, without focal tenderness, no r/g, no cvat
RIGGING LOFT REPAIRER: non focal
MS: no edema
Psych: normal mood and affect
Laboratory Tests
10/12/24 11/13/24
07:25 19:04
WBC 7.4
Hgb 7.8 L 9.6 L
Plt Count 262
Creatinine 0.5 L
eGFR > 60.00
Lactic Acid 1.0
ALT 51 H
Alkaline Phosphatase 128 H
UA pending
BCx sent
Pending final report for US abdomen
CT Abd/Pel (IV only)-DH only
- Status post VANNESA flap reconstruction.
- Focal peripherally enhancing collection within the anterior pelvic wall, most likely representing an abscess, given the history of redness and swelling.
Last hospitalist admission: DATE OF ADMISSION: 10/11/2024 - DATE OF DISCHARGE: 10/12/2024
DISCHARGE DIAGNOSES:
1. Acute left lower extremity deep vein thrombosis.
2. Anemia.
ASSESSMENT & PLAN
Focal peripherally enhancing collection within the anterior pelvic wall, most likely surgical site abscess
At ER, spontaneous drainage at surgical site per EVENT MARKETING COORDINATOR
Remote HX NEG MRSA screen as of 2012 pr [employer]
- Wd discharge swab Cx sent
- BCx sent
- Await Abdomen US report
- Agree with IV Vancomycin
- IR consult for evaluation for aspiration
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
Removal of bilateral breast implants, VANNESA flap breast reconstruction ( 09/30/24)
HX delayed bilateral D IEP flap breast reconstruction with removal of bilateral silicone gel implants.
longstanding history of discomfort from the implants and one had eventually deflated spontaneously.
Hx of Breast Cancer [address]
- Dr. Christensen and outpatient f/u Saturday
LLE DVT, provoked from recent surgery
- c/w SALON MANAGER Eliquis; loading sequence - coupon provided
- OP PCP f/u
HX Chronic Anemia
HX iron deficiency
Hypothyroidism - on replacement
DVT Px: Eliquis
Code: Full
IP MS
[2024-11-13 22:51] LABS: Urine Albumin 1+ (Neg - Trace); Urine Bilirubin Negative (Negative); Urine Character Clear (Clear); Urine Color Yellow; Urine Glucose Negative (Negative); Urine Ketone Negative (Negative); Urine Leukocyte Negative (Negative); Urine Nitrite Negative (Negative); Urine Occult Blood 2+ (Negative); Urine Specific Gravity 1.005 (<1.030); Urine Urobilinogen Negative (Neg - 1+)
[2024-11-13 23:04] LABS: Urine Bacteria Few (Negative); Urine Red Blood Cell 0-2 /HPF (0-2)
[2024-11-14 00:10] VITALS: BP 144/88
[2024-11-14 00:22] VITALS: BMI 31.5
--- NOTE | 2024-11-14 01:07 | PTCARENOTE ---
11/14/2024 - PT admitted to room 2132 from the ED @ 00:07. PT transferred from stretcher to bed independently without assistance. PT is [email or web address]. PT oriented to room, call mendoza, plan of care discussed. PT able to participate fully in admission
questions. Assessment as documented.
[2024-11-14] MEDS: NEURONTIN 300 MG PO ×2 (01:21→21:11)
[2024-11-14] MEDS: ELIQUIS 5 MG PO ×3 (01:21→21:11)
[2024-11-14] MEDS: SYNTHROID 50 MCG PO (06:28)
[2024-11-14 07:04] LABS: Hematocrit 26.6 % (37.0-47.0); Hemoglobin 8.7 g/dL (12.0-16.0); Mean Corp Hgb Conc. 32.7 g/dL (33.0-37.0); Mean Corpuscular Hgb 27.3 pg (27.0-31.0); Mean Corpuscular Volume 83.4 fL (81.0-99.0); Mean Platelet Volume 10.2 fL (7.4-10.4); Platelet Count 228 10^3/uL (130-400); Red Blood Cell Count 3.19 10^6/uL (4.20-5.40); Red Cell Dist. Width 14.8 % (11.5-14.5); White Blood Cell Count 5.2 10^3/uL (4.8-10.8)
[2024-11-14 07:51] VITALS: BP 94/44
[2024-11-14] MEDS: THERAGRAN 1 TABLET PO (09:06)
--- NOTE | 2024-11-14 09:42 | PHA.VAN.IN ---
Assessment
- Assessment
Renal Function: Appears similar to baseline
AUC Dosing Plan
- Dosing Variables
Dosing Weight (kg): 68
Dosing CrCl (ml/min): 86
Vd coefficient (L/kg): 0.7
- Empiric Dosing
Initial / Loading Dose: VANCO 1750MG X1
Maintenance Regimen: VANCO 750MG Q12H
Estimated AUC (mcg*h/mL): 432
Estimated Peak (mcg*h/mL): 26.4
Estimated Trough (mcg/ml): 11.5
Estimated Half Life (H): 9.1
- Monitoring
No levels ordered at this time: CONSIDER LEVEL PRIOR TO 4TH MAINTENANCE DOSE
Pharmacokinetics Vancomycin I
- -
Patient Age: 54
Patient Sex: Female
Vancomycin Day #: 2
Indication: SSTI
Requesting Provider: CLARISSA LARSON
Pertinent Antimicrobial Allergies:
PENICILLINS (ITCHING, RASH)
CEPHALEXIN (N/V)
Height / Weight:
Height 4 ft 10 in
Actual Weight 68.294 kg
Pertinent Past Medical History: OBESITY (BMI 31)
- Vital Signs / Lab Results
Temp Pulse Resp BP Pulse Ox
99.2 F 92 16 94/44 97
11/14/24 07:51 11/14/24 07:51 11/14/24 07:51 11/14/24 07:51 11/14/24 07:51
Lab Results - Hematology
11/13/24 11/14/24
19:04 06:47
WBC 7.4 5.2
Lab Results - Chemistry
11/13/24
19:04
BUN 10
Creatinine 0.5 L
Estimated Creat Clear 89
Albumin 3.5
11/13/24
19:04
Lactic Acid 1.0
Lab Results - Urine
11/13/24
22:35
Urine Nitrite (Reflex) Negative
Leukocyte Esterase Rfl Negative
Urine WBC (Reflex) 3-5
Ur Squamous Epith Cells 6-10
Urine Bacteria (Reflex) Few A
[2024-11-14] MEDS: FLUSH (NSS) 2 FLUSH IV ×2 (10:59→17:52)
[2024-11-14] MEDS: VANCOCIN 150 IV ×2 (10:59→17:53)
--- NOTE | 2024-11-14 11:04 | W.PN.HOSP.TC ---
Today's Communication/Plan
-
see outlined plan
Assessment / Plan
Assessment / Plan
Assessment:
Surgical site infection (Cellulitis) with underlying abscess (hx of VANNESA flap construction 11/13)
- CT: Status post VANNESA flap reconstruction. Focal peripherally enhancing collection within the anterior pelvic wall, most likely representing an abscess, given the history of redness and swelling.
- IR consulted; for drainage/aspiration today. Culture requested.
- Plastics consult
- ID consult
- continue IV Vanco - may need additional agents.
- follow cultures
Anemia Iron deficiency
- hemoglobin stable at 9.5
- No active bleeding
- Trend hemoglobin
post-op left leg deep vein thrombosis in October
- Eliquis continued
History of breast cancer in 2008 with apparently no evidence of active disease.
- Status post inferior epigastric perforated flap reconstruction.
- Follows Dr. Christensen as outpatient
hypothyroidism - on replacement
DVT ppx: Eliquis
Code: Full
Anticipated Discharge: > 48 hours
Subjective/Interval History
-
Date of Service: November 14, 2024
no complaints
Objective Data
-
Labs:
Laboratory Results
11/14/24
06:47
WBC 5.2
Hgb 8.7 L
Hct 26.6 L
Plt Count 228
Vital Signs:
Vital Signs
Temp Pulse Resp BP Pulse Ox
99.2 F 92 16 94/44 97
11/14/24 07:51 11/14/24 07:51 11/14/24 07:51 11/14/24 07:51 11/14/24 07:51
Physical Exam
-
General: No Apparent Distress
HEENT: Normocephalic and Atraumatic
Respiratory: Negative Wheezes
Cardiac: Regular Rhythm and S1/S2
GI: Other (incision line with redness, fluctuance)
Genito-urinary: No Costovertebral Tender
Musculoskeletal: No Edema
Neuro: AO x 3
Hematologic / Lymphatic: No Lymphadenopathy
Psych: Calm
Data Reviewed
-
Total Time Spent with Patient (in minutes): 45
Labs: Labs Reviewed by me
--- NOTE | 2024-11-14 11:06 | CM ---
Reviewed the chart notes and spoke with the patient at the bedside. The patient resides with her spouse in a one story home with three steps to enter. The patient reports no DME or SNF, but has had [facility] in the past. The patient confirmed her
pharmacy of choice is the [facility]. CM continues to be available to patient/family and is monitoring medical plan for needs at discharge.
Plan: Discharge plans will depend on the patient's progress.
--- NOTE | 2024-11-14 13:24 | W.PN.UPDATE ---
Update Note
Progress Note Update
- Patient scanned with US in IR for potential drain placement. Overnight and this morning patient reports significant cutaneous drainage of pelvic wall collection. US images showed significant decrease in size of collection compared to CT from
yesterday, not big enough for drain placement.
- Would continue local wound care, IV abx. Possible rescan in several days to re-assess.
--- NOTE | 2024-11-14 14:25 | CON.ID ---
Consultation
-
Date/Time Consultation Requested: 11/14/24 8:14
Date/Time Consultation Performed: 11/14/24 14:24
Requesting Provider: Dr Murphy
Performing Provider: Dr Vazquez
Reason for Consultation: VANNESA site redness and pain
Chief Complaint / Past History
Chief Complaint
VANNESA site redness and pain
History of Present Illness
Ms Soto is a 54 year old female with history notable for breast cancer s/p mastectomy who underwent a VANNESA flap about 6 weeks ago, she currently has a drain in place. On 11/12 she noted buring type pain around the site which progressed and she
developed redness around the surgical site. No fevers, chills, shortness of breath, abdominal pain, nausea, vomiting, diarrhea or dysuria.
Since arrival here patient has been afebrile, bp overall stable, wbc 7.4 on arrival and 5.2 today, hgb 8.7, plt 228, no L shift, cr 0.5, lactic acid 1.0, t bili 0.4, ast 31, alt 51, alk phos 128, ua no pyuria. 11/13 CT a/p with IV contrast only:
Focal peripherally enhancing collection within the anterior pelvic wall, most likely representing an abscess, given the history of redness and swelling. Patient noted copious drainage through a skin wound overnight. Today 11/14 abd US: Significant
interval decrease in size of anterior pelvic wall abscess. No intervention was performed. wound culture with moderate wbc no organisms, blood cultures x2 in progress, Currently on vancomycin. ID and plastic surgery have been consulted for
assistance with management.
Past History
Additional Past Medical History:
Breast cancer
Thyroid disease
3 blood clot in left leg
Additional Past Surgical History:
Appendectomy
Ovaries and tubes removed
Cholecystectomy
Double mastectomy with reconstructive surgery
Breast implant
D IEP flap
Allergy History:
cephalexin [From Keflex] Allergy (Verified 11/09/24 14:51)
Nausea / Vomiting
Penicillins Allergy (Verified 11/09/24 14:51)
itching, rash
Medications Reviewed: Yes
Social History
Tobacco: Non-Smoker
Alcohol: Occasional
Drug: None
Family History
Family History: Not Pertinent
Review of Systems
Review of Systems
General: Negative Fever or Chills
All systems: All other systems were reviewed and were negative
Vital Signs
Temp Pulse Resp BP Pulse Ox
99.2 F 92 16 94/44 97
11/14/24 07:51 11/14/24 07:51 11/14/24 07:51 11/14/24 07:51 11/14/24 07:51
Physical Exam
Physical Exam
Constitutional: No Acute Distress and Chronically Ill
Cardiovascular: Regular Rate and S1/S2; Negative Murmur or Rub
Pulmonary: Clear and Symmetric; Negative Wheezes, Rales or Rhonchi
Gastrointestinal: Soft, Non Tender, Non Distended and Normal Bowel Sounds
Skin: Warm and Dry; Negative Rash or Jaundice
Wound: Other (surgical site area of dehiscence already healing - no erythema, no tunneling, mildly tender and mildly firm; photo from 11/13 on her phone showed localized, raised, red area perhaps 3 cm long)
Lab / Diagnostic Study Results
11/14/24 06:47
11/13/24 19:04
Abs Immat Gran (auto) 0.0 10^3/uL (0-0.05) 11/13/24 19:04
Absolute Neuts (auto) 4.5 10^3/uL (1.4-6.5) 11/13/24 19:04
Absolute Lymphs (auto) 2.1 10^3/uL (1.2-3.4) 11/13/24 19:04
Absolute Monos (auto) 0.7 10^3/uL (0.1-0.6) H 11/13/24 19:04
Absolute Basos (auto) 0.0 10^3/uL (0-0.2) 11/13/24 19:04
Immature Gran % 0.3 % (0-0.5) 11/13/24 19:04
Neutrophils % 60.0 % (42.2-75.2) 11/13/24 19:04
Lymphocytes % 28.6 % (20.5-51.1) 11/13/24 19:04
Monocytes % 9.2 % (1.7-9.3) 11/13/24 19:04
Eosinophils % 1.5 % (0-6) 11/13/24 19:04
Basophils % 0.4 % (0-2) 11/13/24 19:04
Lactic Acid 1.0 mmol/L (0.7-2.0) 11/13/24 19:04
Ur Squamous Epith Cells 6-10 /LPF (Few) 11/13/24 22:35
Microbiology Results
Micro:
11/13/24 22:47 Wound Culture - Pending
Abdomen Gram Stain - Preliminary
11/13/24 20:55 Blood Culture - Pending
Blood/Venous
11/13/24 19:04 Blood Culture - Pending
Blood/Venous
Assessment / Plan
Surgical Site Abscess
- drained spontaneously
- wound culture in progress
- blood cultures x2 in progress
- c/w vancomycin
- add cefepime for now
- eventual transition to orals
- appreciate plastics
[2024-11-14 15:09] VITALS: BP 112/64
[2024-11-14] MEDS: TYLENOL 650 MG PO (16:02)
[2024-11-14] MEDS: MAXIPIME 2000 MG IV (17:51)
[2024-11-14] MEDS: STERILE WATER FOR INJECTION 10 ML IV (17:52)
[2024-11-14] MEDS: TORADOL 15 MG IV (21:19)
[2024-11-14 23:40] VITALS: BP 108/62
[2024-11-15 05:33] LABS: Hematocrit 27.8 % (37.0-47.0); Hemoglobin 8.9 g/dL (12.0-16.0); Mean Corpuscular Hgb 26.5 pg (27.0-31.0); Mean Corpuscular Volume 82.7 fL (81.0-99.0); Mean Platelet Volume 10.3 fL (7.4-10.4); Platelet Count 228 10^3/uL (130-400); Red Blood Cell Count 3.36 10^6/uL (4.20-5.40); Red Cell Dist. Width 14.5 % (11.5-14.5); White Blood Cell Count 4.2 10^3/uL (4.8-10.8)
[2024-11-15 05:56] LABS: Blood Urea Nitrogen 11 mg/dl (7-17); Calcium 9.4 mg/dl (8.4-10.2); Carbon Dioxide 26 mmol/L (22-30); Chloride 106 mmol/L (98-107); Estimated Creatinine Clearance 90 ml/min; Glucose 117 mg/dl (70-99); Potassium 3.9 mmol/L (3.5-5.1); Sodium 141 mmol/L (135-145); eGFR > 60.00
[2024-11-15] MEDS: SYNTHROID 50 MCG PO (06:00)
[2024-11-15] MEDS: MAXIPIME 2000 MG IV ×2 (06:00→16:18)
[2024-11-15] MEDS: STERILE WATER FOR INJECTION 10 ML IV ×2 (06:00→16:16)
[2024-11-15] MEDS: VANCOCIN 150 IV ×2 (06:00→17:20)
[2024-11-15 07:45] VITALS: BP 110/66
[2024-11-15] MEDS: ELIQUIS 5 MG PO ×2 (08:02→21:32)
[2024-11-15] MEDS: THERAGRAN 1 TABLET PO (08:03)
--- NOTE | 2024-11-15 09:21 | PHA.VAN.FU ---
Vancomycin Assessment / Plan
- Assessment
Renal Function: Stable
WBC's are: Trending Down
In the past 24 hrs, patient has been: Afebrile
Concomitant Antimicrobials: CEFEPIME
- Dosing Plan
Continue: VANCO 750MG Q12H
- Monitoring Plan
Peak Level: 11/15 @2100
Trough Level: 11/16 @0530
- Follow Up
Pharmacy will continue to follow.
Vancomycin Follow UP
- -
Patient Age: 54
Patient Sex: Female
Vancomycin Day #: 3
Indication: SSTI
Requesting Provider: DR. LIEBERMAN
Pertinent Antimicrobial Allergies:
PENICILLINS (ITCHING, RASH)
CEPHALEXIN (N/V)
Height / Weight:
Height 4 ft 10 in
Actual Weight 68.294 kg
Pertinent Past Medical History: OBESITY (BMI 31)
- Vital Signs / Lab Results
Temp Pulse Resp BP Pulse Ox
98.3 F 87 16 110/66 97
11/15/24 07:45 11/15/24 07:45 11/15/24 07:45 11/15/24 07:45 11/15/24 07:45
Lab Results - Hematology
11/13/24 11/14/24 11/15/24
19:04 06:47 04:57
WBC 7.4 5.2 4.2 L
Lab Results - Chemistry
11/13/24 11/15/24
19:04 04:57
BUN 10 11
Creatinine 0.5 L 0.4 L
Estimated Creat Clear 89 90
Albumin 3.5
11/13/24
19:04
Lactic Acid 1.0
Microbiology Results
11/13/24 20:55 Blood Culture - Preliminary
Blood/Venous No Growth in 24 hours- Final report to follow
11/13/24 19:04 Blood Culture - Preliminary
Blood/Venous No Growth in 24 hours- Final report to follow
11/13/24 22:47 Gram Stain - Preliminary
Abdomen
--- NOTE | 2024-11-15 13:54 | W.PN.ID1 ---
Date of Service
Date of Service: November 15, 2024
Today's Communication
- wound culture - S aureus - awaiting sensitivities
- blood cultures x2 in progress, no growth to date
- c/w vancomycin
- c/w cefepime for now, will stop tomorrow if no other pathogens IDd
- eventual transition to orals
Assessment / Plan
Surgical Site Abscess
- drained spontaneously
- wound culture - S aureus - awaiting sensitivities
- blood cultures x2 in progress, no growth to date
- c/w vancomycin
- c/w cefepime for now, will stop tomorrow if no other pathogens IDd
- eventual transition to orals
- appreciate plastics
Chief Complaint
-: Other (surgical site infection)
Subjective / Review of Systems
afebrile
bp stable
no events overnight
white stitch came out of the draining collection spontaneously, second white stitch also noted
Vital Signs / Physical Exam
Vital Signs
Vital Signs
Temp Pulse Resp BP Pulse Ox
98.3 F 87 16 110/66 97
11/15/24 07:45 11/15/24 07:45 11/15/24 07:45 11/15/24 07:45 11/15/24 08:00
Physical Exam
Constitutional: No Acute Distress
Cardiovascular: Regular Rate and S1/S2; Negative Murmur or Rub
Pulmonary: Clear and Symmetric; Negative Wheezes or Rales
Gastrointestinal: Soft, Non Tender, Non Distended and Normal Bowel Sounds
Skin: Warm and Dry; Negative Rash or Jaundice
Wound: Other (small area of dehiscence spontaneously draining some cloudy, brown fluid; white stitch came out of the draining collection spontaneously, second white stitch also noted )
Objective Data
Lab Data
Lab Results
11/15/24 04:57
11/15/24 04:57
Estimated Creat Clear 90 ml/min 11/15/24 04:57
Lactic Acid 1.0 mmol/L (0.7-2.0) 11/13/24 19:04
Total Bilirubin 0.4 mg/dl (0.2-1.3) 11/13/24 19:04
AST 31 U/L (14-36) 11/13/24 19:04
ALT 51 U/L (0-35) H 11/13/24 19:04
Alkaline Phosphatase 128 U/L (38-126) H 11/13/24 19:04
Most recent labs reviewed.
Micro Results:
11/13/24 22:47 Wound Culture - Preliminary
Abdomen Staphylococcus aureus
Gram Stain - Preliminary
11/13/24 20:55 Blood Culture - Preliminary
Blood/Venous No Growth in 24 hours- Final report to follow
11/13/24 19:04 Blood Culture - Preliminary
Blood/Venous No Growth in 24 hours- Final report to follow
Care Review
Plan reviewed with: Physician (Dr Murphy, Dr Christensen - medical plan)
--- NOTE | 2024-11-15 13:58 | W.PN.HOSP.TC ---
Today's Communication/Plan
-
continue IV abx pending cultures
Assessment / Plan
Assessment / Plan
Assessment:
Surgical site infection (Cellulitis) with underlying abscess (hx of VANNESA flap construction 11/13)
- CT: Status post VANNESA flap reconstruction. Focal peripherally enhancing collection within the anterior pelvic wall, most likely representing an abscess, given the history of redness and swelling.
- IR attempted drainage but is spontaneously draining
- Vancomycin/Cefepime, day 2. Wound culture with staph aureus
- ID following
- Plastics following
Anemia Iron deficiency
- hemoglobin stable at 8.9
- No active bleeding
- Trend hemoglobin
post-op left leg deep vein thrombosis in October
- Eliquis continued
History of breast cancer in 2008 with apparently no evidence of active disease.
- Status post inferior epigastric perforated flap reconstruction.
- Follows Dr. Christensen as outpatient
hypothyroidism - on replacement
DVT ppx: Eliquis
Code: Full
Anticipated Discharge: 24 - 48 hours
Subjective/Interval History
-
Date of Service: November 15, 2024
no complaints
Objective Data
-
Labs:
Laboratory Results
11/15/24
04:57
WBC 4.2 L
Hgb 8.9 L
Hct 27.8 L
Plt Count 228
Sodium 141
Potassium 3.9
Chloride 106
Carbon Dioxide 26
BUN 11
Creatinine 0.4 L
Glucose 117 H
Calcium 9.4
Vital Signs:
Vital Signs
Temp Pulse Resp BP Pulse Ox
98.3 F 87 16 110/66 97
11/15/24 07:45 11/15/24 07:45 11/15/24 07:45 11/15/24 07:45 11/15/24 08:00
I&O
11/14/24 11/15/24 11/16/24
06:59 06:59 06:59
Intake Total 1590 / 1590
Balance 1590 / 1590
Physical Exam
-
General: No Apparent Distress
HEENT: Normocephalic and Atraumatic
Respiratory: Negative Wheezes
Cardiac: Regular Rhythm and S1/S2
GI: Soft
Genito-urinary: No Costovertebral Tender
Musculoskeletal: Other (surgical site area of dehiscence already healing - no erythema, no tunneling, mildly tender and mildly firm; photo from 11/13 on her phone showed localized, raised, red area perhaps 3 cm long)
Neuro: AO x 3
Hematologic / Lymphatic: No Lymphadenopathy
Psych: Calm
Data Reviewed
-
Total Time Spent with Patient (in minutes): 41
Labs: Labs Reviewed by me
[2024-11-15 15:43] VITALS: BP 120/62
[2024-11-15] MEDS: FLUSH (NSS) 2 FLUSH IV ×2 (16:17→17:21)
[2024-11-15] MEDS: NEURONTIN 300 MG PO (21:32)
[2024-11-15 22:27] LABS: Vancomycin Peak 10.4 ug/ml (18-26)
[2024-11-15 23:25] VITALS: BP 113/59
[2024-11-16] MEDS: MAXIPIME 2000 MG IV (05:00)
[2024-11-16] MEDS: STERILE WATER FOR INJECTION 10 ML IV (05:00)
[2024-11-16] MEDS: SYNTHROID 50 MCG PO (05:41)
[2024-11-16] MEDS: VANCOCIN 150 IV (05:42)
[2024-11-16 05:46] LABS: Hematocrit 29.1 % (37.0-47.0); Hemoglobin 9.5 g/dL (12.0-16.0); Mean Corp Hgb Conc. 32.6 g/dL (33.0-37.0); Mean Corpuscular Hgb 26.4 pg (27.0-31.0); Mean Corpuscular Volume 80.8 fL (81.0-99.0); Mean Platelet Volume 9.5 fL (7.4-10.4); Platelet Count 248 10^3/uL (130-400); Red Cell Dist. Width 14.4 % (11.5-14.5); White Blood Cell Count 5.1 10^3/uL (4.8-10.8)
[2024-11-16 06:12] LABS: Vancomycin Trough 5.4 ug/ml (5-20)
[2024-11-16 06:27] LABS: Blood Urea Nitrogen 8 mg/dl (7-17); Calcium 9.6 mg/dl (8.4-10.2); Carbon Dioxide 26 mmol/L (22-30); Chloride 106 mmol/L (98-107); Estimated Creatinine Clearance 90 ml/min; Glucose 102 mg/dl (70-99); Potassium 4.3 mmol/L (3.5-5.1); Sodium 139 mmol/L (135-145); eGFR > 60.00
[2024-11-16 07:35] VITALS: BP 124/79
--- NOTE | 2024-11-16 08:26 | PHA.VAN.FU ---
Vancomycin Assessment / Plan
- Assessment
Renal Function: Stable
WBC's are: WNL
In the past 24 hrs, patient has been: Afebrile
Concomitant Antimicrobials: cefepime
- Assessment - Therapeutic Drug Monitoring
Extrapolated Cmax (mcg/mL): 14.4
Peak level was drawn: More than 3 hours after previous dose (Accuracy of calculations may be decreased since peak was drawn late. Peak underestimated from true value which may lead to underestimation of AUC and overestimation of half-life)
Extrapolated Cmin (mcg/mL): 5.5
Trough Drawn: Appropriately
Levels were drawn: At steady state (levels drawn after 4th maintenance dose)
Calculated AUC (mcg*h/mL): 223
Calculated ke: 0.087
Calculated half life (H): 8
Calculated Vd (L): 77 (~1.1 L/kg)
Calculated Vanc CL (ml/min): 112
Accuracy of above calculations reduced as peak drawn > 3H after end of previous infusion
Based on trough, regimen is subtherapeutic
- Dosing Plan
Adjust Regimen to: Vanc 1250mg Q12H
- Monitoring Plan
No level(s) ordered at this time: consider repeat levels in next few days
- Follow Up
Pharmacy will continue to follow.
Vancomycin Follow UP
- -
Patient Age: 54
Patient Sex: Female
Vancomycin Day #: 4
Indication: Skin And Soft Tissue
Requesting Provider: Dr. Vazquez
Pertinent Antimicrobial Allergies:
Penicillins - itching, rash
Cephalexin - N/V
Height / Weight:
Height 4 ft 10 in
Actual Weight 68.294 kg
Pertinent Past Medical History: BMI ~31.5
- Vital Signs / Lab Results
Temp Pulse Resp BP Pulse Ox
98.7 F 84 18 124/79 95
11/16/24 07:35 11/16/24 07:35 11/16/24 07:35 11/16/24 07:35 11/16/24 07:35
Lab Results - Hematology
11/13/24 11/14/24 11/15/24
19:04 06:47 04:57
WBC 7.4 5.2 4.2 L
11/16/24
05:35
WBC 5.1
Lab Results - Chemistry
11/13/24 11/15/24 11/16/24
19:04 04:57 05:35
BUN 10 11 8
Creatinine 0.5 L 0.4 L 0.4 L
Estimated Creat Clear 89 90 90
Albumin 3.5
11/13/24
19:04
Lactic Acid 1.0
Microbiology Results
11/13/24 22:47 Wound Culture - Preliminary
Abdomen Staphylococcus aureus
Gram Stain - Preliminary
11/13/24 20:55 Blood Culture - Preliminary
Blood/Venous No Growth in 48 hours- Final report to follow
11/13/24 19:04 Blood Culture - Preliminary
Blood/Venous No Growth in 48 hours- Final report to follow
Therapeutic Drug Monitoring
Vancomycin Peak 10.4 ug/ml (18-26) L 11/15/24 22:03
Vancomycin Trough 5.4 ug/ml (5-20) 11/16/24 05:35
[2024-11-16] MEDS: THERAGRAN 1 TABLET PO (08:54)
[2024-11-16] MEDS: ELIQUIS 5 MG PO (08:54)
[2024-11-16 08:58] VITALS: BMI 31.0
--- NOTE | 2024-11-16 11:10 | PTCARENOTE ---
received patient this am, VSS, patient c/o no pain, abd. dsg. changed at 0600 by previous RN. patient able to ambulate in room. patient ready to eat breakfast.
--- NOTE | 2024-11-16 13:45 | WOUNDNOTE ---
ABDOMEN/SUPRAPUBIC AREA
--- NOTE | 2024-11-16 13:49 | WOUNDNOTE ---
[facility] RN note: Patient admitted with lower abdominal flap incisional abscess which is spontaneously draining.She lives with her . Patient for possible discharge today with follow up with Dr. Christensen.
See H&P for complete history.
PMH: cholecystomy, breast ca 2009, thyroid disease, mastectomy, VANNESA flap surgery 6 weeks ago, double mastectomy with reconstruction, breast implant, L DVT (Eliquis).
Wound Location and type/assessment: Patient admitted with: 2 open incisional areas lower abdominal incision, pink, with moderate-large serous drainage. Patient reports redness is much improved. Dr. Christensen saw patient this am as per patient.
Freddy in to see patient. ID following.
Appetite: regular.
Pressure redistribution devices in place: [employer] Accumax. Patient ambulates.
Plan: Lower abdominal dressing changed. Instructed patient hand hygiene with wound care at home. Wound care supplies in room. She uses mesh shorts to help secure dressing.
Will confirm orders with Dr. Christensen and discussed with MONALISA Mehta.
Care plan to be updated and will follow as needed. Patient to follow up at Dr. Christensen's office. She stated she has an appointment on Saturday.
--- NOTE | 2024-11-16 13:50 | W.PN.HOSP.TC ---
Today's Communication/Plan
-
Discharge
Assessment / Plan
Assessment / Plan
Gen-AAOx3, NAD
HEENT-NC, AT, anicteric, clear oral mm
Neck-supple
CV-reg, no M, +S1/S2
Lungs-clear B/L
Abd-soft, NT, ND
Ext-no edema
Musculoskeletal-no cyanosis, clubbing
Skin-warm and dry
Neuro-grossly non-focal
Psych-calm, cooperative
MSSA surgical site infection (Cellulitis) with underlying abscess (hx of VANNESA flap construction 11/13)
- CT: Status post VANNESA flap reconstruction. Focal peripherally enhancing collection within the anterior pelvic wall, most likely representing an abscess, given the history of redness and swelling.
- IR attempted drainage but is spontaneously draining
-Convert to oral antibiotics if okay with ID. Anticipate discharge if okay with surgical service.
I spoke with Dr. Vazquez, ok to do Keflex 500mg QID x 2 weeks.
Anemia Iron deficiency
- hemoglobin stable at 9.5.
- No active bleeding
- Trend hemoglobin
post-op left leg deep vein thrombosis in October
- Eliquis continued
History of breast cancer in 2008 with apparently no evidence of active disease.
- Status post inferior epigastric perforated flap reconstruction.
- Follows Dr. Christensen as outpatient
hypothyroidism - on replacement
DVT ppx: Eliquis
Code: Full
Dispo -possible discharge later today if okay with surgical service. Outpatient follow-up.
32 minutes spent in discharge process.
Anticipated Discharge: Today
Subjective/Interval History
-
Date of Service: November 16, 2024
Patient seen and examined. Feeling much better. No complaints.
Objective Data
-
Labs:
Laboratory Results
11/16/24
05:35
WBC 5.1
Hgb 9.5 L
Hct 29.1 L
Plt Count 248
Sodium 139
Potassium 4.3
Chloride 106
Carbon Dioxide 26
BUN 8
Creatinine 0.4 L
Glucose 102 H
Calcium 9.6
Vital Signs:
Vital Signs
Temp Pulse Resp BP Pulse Ox
98.7 F 84 18 124/79 95
11/16/24 07:35 11/16/24 07:35 11/16/24 07:35 11/16/24 07:35 11/16/24 08:30
I&O
11/15/24 11/16/24 11/17/24
06:59 06:59 06:59
Intake Total 1590 / 1590 1170 / 1170
Balance 1590 / 1590 1170 / 1170
Review of Systems
-
History Source: Patient
All other systems: Reviewed and negative
--- NOTE | 2024-11-16 14:41 | W.PN.UPDATE ---
Update Note
Progress Note Update
patient reports intolerance of keflex, plan doxycycline 100 mg PO BID x2 weeks instead.
--- NOTE | 2024-11-16 14:49 | W.DS.TRANS ---
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
-
Discharge Instructions:
Discharge Diagnosis/Procedures Postoperative wound infection, abscess
Diet Regular
Activity As tolerated
Driving Restrictions As prior to admission
Bathing Restrictions None
Instructions:
Stand-Alone Forms:
Changes to Home Medications: No
Discharge Medications:
DC Medications w/original date entered in [employer]
levothyroxine 50 mcg tablet 50 mcg PO DAILY Thyroid 12/04/12
apixaban 5 mg tablet (Eliquis) 5 mg PO BID 11/02/24
gabapentin 100 mg capsule 300 mg PO HS 11/02/24
therapeutic multivitamin 1 tab PO DAILY 11/13/24
doxycycline monohydrate 100 mg tablet 100 mg PO BID #28 tabs 11/16/24
Home Medication Changes
Pending Results: No
[2024-11-16 15:18] VITALS: BP 123/72
--- NOTE | 2024-11-16 15:21 | CM ---
CM reviewed chart and noted dc order
Bedside meeting with pt and spouse
No dc needs noted
Discharge Disposition- home, no needs, spouse transport
--- NOTE | 2024-11-16 15:33 | PTCARENOTE ---
D/C instructions given to patient, verbalizes understanding. INT D/C'd, personal belongings packed and sent home with patient. D/C to home via wc accompanied by vol. staff.
== END 2024-11-16 16:00 | disposition home or self-care (01) | DRG 863 ==
LOC: 2 NORTH 23:06
PROVIDERS: Internal Medicine; Physician Assistant; Registered Nurse; ADMITTING PHYSICIAN Internal Medicine; ATTENDING PHYSICIAN Hospitalist; CONSULT PHYSICIAN Student in an Organized Health Care Education/Training Program; EMERGENCY PHYSICIAN Emergency Medicine; FAMILY PHYSICIAN Physician Assistant Medical
DX: T81.41XA Infection following a procedure, superficial incisional surgical site, initial encounter (principal); L02.211 Cutaneous abscess of abdominal wall; L03.311 Cellulitis of abdominal wall; Y83.4 Other reconstructive surgery as the cause of abnormal reaction of the patient, or of later complication, without mention of misadventure at the time of the procedure; B95.61 Methicillin susceptible Staphylococcus aureus infection as the cause of diseases classified elsewhere; D50.9 Iron deficiency anemia, unspecified; Z90.13 Acquired absence of bilateral breasts and nipples; Z85.3 Personal history of malignant neoplasm of breast; Z98.82 Breast implant status; Z88.0 Allergy status to penicillin; Z79.890 Hormone replacement therapy; E03.9 Hypothyroidism, unspecified; Z79.01 Long term (current) use of anticoagulants; Z86.718 Personal history of other venous thrombosis and embolism
CPT/HCPCS: 74177; 76705; 80048; 80053; 80202; 81003; 81015; 83605; 85025; 85027; 87040; 87070; 87147; 87186; 87205; 96361; 96365; 96366; 96375; 99285; Q9967

== ENCOUNTER → 2024-11-28 11:16 | Outpatient (REF) | payer OTHER, SELFPAY ==
[2024-11-28 17:14] LABS: Hepatitis B Surface Antigen Negative (Negative)
[2024-11-28 17:32] LABS: Hepatitis B Surface Antibody Negative; Hepatitis C Antibody Negative (Negative)
[2024-11-30 12:49] LABS: H. pylori Breath Test Positive (Negative)
[2024-11-30 13:29] LABS: Alpha-1-Antitrypsin 139 mg/dL (90-200)
[2024-11-30 13:32] LABS: Ceruloplasmin 32 mg/dL (16-45)
[2024-12-01 00:24] LABS: F-Actin Antibody IgG 4 Units (0-19); Mitochondrial M2 Ab, IgG 3.1 Units (0.0-24.9)
[2024-12-01 09:40] LABS: ANA, IgG Reflex to HEp-2 None Detected (None Detected)
== END ==
LOC: REG 11:16
PROVIDERS: ATTENDING PHYSICIAN Internal Medicine Gastroenterology; FAMILY PHYSICIAN Physician Assistant Medical
DX: R79.89 Other specified abnormal findings of blood chemistry (principal); D50.9 Iron deficiency anemia, unspecified
CPT/HCPCS: 36415; 82103; 82272; 82390; 83013; 86015; 86038; 86381; 86706; 86708; 86803; 87338; 87340

== ENCOUNTER 2024-11-30 14:33 | Outpatient (RCR) | payer OTHER, SELFPAY ==
[2024-11-02] MEDS: VENOFER 110 MG IV (14:45)
[2024-11-02 14:51] VITALS: BP 124/83
[2024-11-02 15:48] VITALS: BP 126/69
[2024-11-09 14:41] VITALS: BP 122/78
[2024-11-09] MEDS: VENOFER 110 MG IV (14:48)
[2024-11-09 15:54] VITALS: BP 127/76
[2024-11-23 14:35] VITALS: BP 126/77
[2024-11-23] MEDS: VENOFER 110 MG IV (14:47)
[2024-11-23 15:49] VITALS: BP 123/71
[2024-11-30 14:35] VITALS: BP 135/64
[2024-11-30] MEDS: VENOFER 110 MG IV (15:02)
[2024-11-30 16:15] VITALS: BP 107/53
== END 2024-11-30 23:59 | disposition home or self-care (01) ==
LOC: OID 14:33
PROVIDERS: ATTENDING PHYSICIAN Physician Assistant Medical; FAMILY PHYSICIAN Family Medicine
DX: D50.9 Iron deficiency anemia, unspecified (principal); I82.412 Acute embolism and thrombosis of left femoral vein; Z85.3 Personal history of malignant neoplasm of breast
CPT/HCPCS: 96365; J1756

== ENCOUNTER 2024-12-07 14:19 | Outpatient (RCR) | payer OTHER, SELFPAY ==
[2024-12-07 14:30] VITALS: BP 145/73
[2024-12-07] MEDS: VENOFER 110 MG IV (14:43)
[2024-12-07 16:03] VITALS: BP 136/76
== END 2024-12-09 10:04 | disposition home or self-care (01) ==
LOC: OID 14:19
PROVIDERS: ATTENDING PHYSICIAN Physician Assistant Medical; FAMILY PHYSICIAN Family Medicine
DX: D50.9 Iron deficiency anemia, unspecified (principal); I82.412 Acute embolism and thrombosis of left femoral vein; Z85.3 Personal history of malignant neoplasm of breast
CPT/HCPCS: 96365; J1756

== ENCOUNTER 2025-01-21 06:26 | Day surgery (SDC) | payer OTHER, SELFPAY | END 2025-01-21 15:20 | disposition home or self-care (01) | LOC: GI 06:26 | PROVIDERS: ATTENDING PHYSICIAN Internal Medicine Gastroenterology | DX: D50.9 Iron deficiency anemia, unspecified (principal); K57.30 Diverticulosis of large intestine without perforation or abscess without bleeding; K31.89 Other diseases of stomach and duodenum; K29.60 Other gastritis without bleeding; B96.81 Helicobacter pylori [H. pylori] as the cause of diseases classified elsewhere; K63.5 Polyp of colon | CPT/HCPCS: 45385; 45380; 43239; 88305; 88342 ==

== ENCOUNTER → 2025-02-16 12:50 | Outpatient (REF) | payer OTHER, SELFPAY | LOC: RAD 12:50 | PROVIDERS: ATTENDING PHYSICIAN Physician Assistant Medical | DX: I82.432 Acute embolism and thrombosis of left popliteal vein (principal) | CPT/HCPCS: 93971 ==

== ENCOUNTER → 2025-03-04 12:29 | Outpatient (REF) | payer OTHER, SELFPAY ==
[2025-03-04 13:22] LABS: Hematocrit 36.3 % (37.0-47.0); Hemoglobin 12.2 g/dL (12.0-16.0); Mean Corp Hgb Conc. 33.6 g/dL (33.0-37.0); Mean Corpuscular Volume 84.8 fL (81.0-99.0); Nucleated Red Blood Cells % 0 %; Platelet Count 218 10^3/uL (130-400); Red Cell Dist. Width 15.5 % (11.5-14.5)
[2025-03-04 13:49] LABS: Iron 57 ug/dl (37-170)
[2025-03-04 13:59] LABS: Total Iron Binding Capacity 210 ug/dl (265-497)
[2025-03-04 14:18] LABS: Ferritin 374.0 ng/ml (11.1-264.0)
== END ==
LOC: REG 12:29
PROVIDERS: ATTENDING PHYSICIAN Internal Medicine Gastroenterology; FAMILY PHYSICIAN Physician Assistant Medical
DX: A04.8 Other specified bacterial intestinal infections (principal); D50.9 Iron deficiency anemia, unspecified
CPT/HCPCS: 36415; 82728; 83013; 83540; 83550; 85025

== ENCOUNTER → 2025-03-27 09:00 | Outpatient (REF) | payer OTHER, SELFPAY ==
[2025-03-27 12:19] LABS: D-Dimer < 0.27 ug/mlFEU (0.00-0.50)
[2025-03-29 16:20] LABS: Protein S Total Antigen 145 % (63-126)
[2025-03-29 20:00] LABS: Protein C, Total Antigen >95 % (63-153)
[2025-03-30 01:01] LABS: Beta-2-Glycoprotein I Ab. IgA <10 SAU (<=20)
== END ==
LOC: REG 09:00
PROVIDERS: ATTENDING PHYSICIAN Internal Medicine Hematology & Oncology; FAMILY PHYSICIAN Physician Assistant Medical
DX: D68.59 Other primary thrombophilia (principal); D68.69 Other thrombophilia
CPT/HCPCS: 36415; 81241; 85210; 85300; 85302; 85305; 85306; 85379; 85610; 85613; 85730; 86146; 86147

== ENCOUNTER → 2025-05-29 09:15 | Outpatient (REF) | payer OTHER, SELFPAY ==
[2025-05-29 10:24] LABS: Hematocrit 36.8 % (37.0-47.0); Hemoglobin 12.0 g/dL (12.0-16.0); Mean Corp Hgb Conc. 32.6 g/dL (33.0-37.0); Mean Corpuscular Volume 88.0 fL (81.0-99.0); Nucleated Red Blood Cells % 0 %; Platelet Count 180 10^3/uL (130-400); Red Cell Dist. Width 13.2 % (11.5-14.5)
[2025-05-29 10:34] LABS: D-Dimer 0.37 ug/mlFEU (0.00-0.50)
[2025-05-29 10:50] LABS: Total Iron Binding Capacity 210 ug/dl (265-497)
[2025-05-29 11:18] LABS: Ferritin 369.0 ng/ml (11.1-264.0)
== END ==
LOC: CLAB 09:15
PROVIDERS: ATTENDING PHYSICIAN Internal Medicine Hematology & Oncology
DX: I82.502 Chronic embolism and thrombosis of unspecified deep veins of left lower extremity (principal); D50.0 Iron deficiency anemia secondary to blood loss (chronic)
CPT/HCPCS: 81240; 82728; 83550; 85025; 85379

== ENCOUNTER 2025-06-16 06:11 | Day surgery (SDC) | payer OTHER, SELFPAY ==
[2025-06-04 10:11] LABS: Hematocrit 36.8 % (37.0-47.0); Hemoglobin 12.2 g/dL (12.0-16.0); Mean Corp Hgb Conc. 33.2 g/dL (33.0-37.0); Mean Corpuscular Volume 87.0 fL (81.0-99.0); Nucleated Red Blood Cells % 0 %; Platelet Count 231 10^3/uL (130-400); Red Cell Dist. Width 13.1 % (11.5-14.5)
[2025-06-04 10:36] LABS: ALT (SGPT) 43 U/L (0-35); AST (SGOT) 29 U/L (14-36); Albumin 4.5 g/dl (3.5-5.0); Alkaline Phosphatase 105 U/L (38-126); Blood Urea Nitrogen 12 mg/dl (7-17); Calcium 9.5 mg/dl (8.4-10.2); Carbon Dioxide 26 mmol/L (22-30); Chloride 106 mmol/L (98-107); Glucose 102 mg/dl (70-99); Potassium 4.4 mmol/L (3.5-5.1); Sodium 141 mmol/L (135-145); Total Protein 7.4 g/dl (6.3-8.2); eGFR > 60.00
[2025-06-07 13:28] VITALS: BMI 29.8
[2025-06-16] VITALS (13 sets, daily range): BP systolic 10–132; BP diastolic 53–81; BMI 29.8
[2025-06-16] MEDS: TRANSDERM-SCOP 1 PATCH TRANSDERM (07:27)
[2025-06-16] MEDS: TYLENOL 1000 MG PO (07:27)
[2025-06-16] MEDS: EMEND 40 MG PO (07:28)
[2025-06-16] MEDS: NORMOSOL-R/PLASMALYTE-A 1000 IV (07:36)
--- NOTE | 2025-06-16 07:38 | PTCARENOTE ---
Patient was stating that she only wanted the IV started in certain areas. 1 miss by Nadine SHELDON and 1 miss by Dori Adams and 1 successful stick by Dori Adams. Patient very tearful. IV was finally obtained in the R AC where patient did not want staff to stick.
That was the best option for the IV in the R AC. Will monitor patient.
[2025-06-16] MEDS: LOVENOX 40 MG SC (07:43)
[2025-06-16] MEDS: DILAUDID 0.5 MG IV (11:18)
--- NOTE | 2025-06-16 11:38 | W.IMMPOSTOP ---
Surgical Immed Post Op Note
-
Primary Surgeon: MERARY Christensen MD
Assisting Surgeon:
Pre-op Diagnosis: History of breast cancer, status post bilateral mastectomy
Post-op Diagnosis: Same
Procedure Performed: Bilateral revisions to reconstructed breast, suction assisted lipectomy of trunk, bilateral, fat grafting to the bilateral breast 280 cc total, dogear excision and local tissue rearrangement left abdominal donor site
Anesthesia Type: General
Specimen / Cultures: None
Estimated Blood Loss: 30 cc
Complications: None
Operative Findings: As expected
--- NOTE | 2025-06-16 11:38 | OR.RPT ---
Operative Report
Operative Report
Date of surgery: 06/16/2025
Surgeon: MERARY Christensen MD
Preoperative diagnosis:
1. 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
2. History of breast cancer
Postoperative diagnosis: Same
Procedure:
1. Bilateral revisions to reconstructed breasts
2. Suction assisted lipectomy of trunk
3. Fat grafting to the bilateral breast, 280 cc total
4. Dogear excision and adjacent tissue transfer, left abdominal donor site, 6 x 3 cm
5. Excision excessive subcutaneous tissues, lateral chest wall, bilateral
Anesthesia: General
Complications: None
EBL: 30 cc
Indications for procedure: Patient is a 54-year-old female who is well-known to me for history of breast cancer status post bilateral mastectomy and implant-based reconstruction. She opted for removal of her implants and conversion to a VANNESA flap
reconstruction. She tolerated this procedure well. Of note her postoperative course was complicated by DVT for which she had a factor V Leiden diagnosis. She is followed by hematology and cleared for surgery. She desired revision to the
bilateral reconstructed breast and removal of the bilateral skin islands anteriorly. She also desired excision of redundant subcutaneous tissues of the lateral chest wall to improve created improved reconstructed breast contour she had a dogear on
the left and desired surgical revision of this. Fat grafting was discussed as a way to add subtle value anteriorly to achieve projection and eliminate contour irregularities. Risks including fat necrosis, recurrent scarring, infection, DVT PE,
bleeding, hematoma were reviewed at length. Seroma was also discussed and the potential use of drains. She understood and consented accordingly, desire to proceed.
Procedure in detail: Patient was identified preoperatively and the surgical site was confirmed to be the bilateral breast and lateral chest wall as well as the bilateral lateral flanks and left abdominal donor site. All questions were answered and
consents were confirmed. Patient was taken back to the operative room placed supine on the table. Anesthesia was induced the patient was prepped and draped in the usual sterile fashion using ChloraPrep solution. Timeout for patient safety was
performed was confirmed that preoperative Lovenox have been emesis administered as well as preoperative antibiotics. SCDs were in place. Procedure began with the injection of tumescent solution in the lateral chest wall as well as lateral flanks.
Suction assisted lipectomy of the trunk was then performed using power assisted liposuction. This was a separate and independent procedure of the lateral chest wall in order to redefine the lateral breast boundary without additional scar burden.
Following this the revision to reconstructed breast was performed as well as the excision of the lateral subcutaneous tissues including skin. This involved an ellipse around the prior skin islands anteriorly as well as an ellipse around the lateral
chest wall access. These were incised with a 10 blade and removed with Bovie electrocautery. Laterally the wound was able to be close primarily. Mastectomy skin flaps needed to be dissected free from the underlying flap and advanced to allow for
closure. Drains were left in the space. The wound was closed with combination of 3-0 Monocryl, INSORB, a running 3 oh barbed suture was used superficially. After completion of the right side the exact same procedure was performed on the left
side. The lateral chest wall was contoured using suction assisted lipectomy and then the excisional approach to revision of the left reconstructed breast as well as excision of subcutaneous tissues of the chest wall were performed via 2 ellipses.
The wounds were closed in layers over a drain. With regards to fat grafting, the donor site was the bilateral abdomen and flanks. The pure graft System was used to harvest fat from these areas and to be sterilely processed. Following fat graft
harvest, the left abdominal dogear was excised and a adjacent tissue transfer in the form of a backcut extension of the prior scar and rotation advancement of the superior skin flap was performed over an area of 6 x 3 cm. This wound was also closed
in layers using 3-0 Monocryl and the INSORB stapler. Attention was then turned to fat grafting for contour improvement and symmetry in volume. A total of 100 cc was placed into the right breast flap and 180 cc was placed in the left. The patient
tolerated the procedure well and was performed out complication. All counts were correct in the case. She was explained and taken the PACU for further care. Compressive binder and bra were placed. All wounds were dressed appropriately.
[2025-06-16] MEDS: DILAUDID 0.25 MG IV (11:57)
[2025-06-16] MEDS: ZOFRAN 4 MG IV (13:13)
== END 2025-06-16 15:41 | disposition home or self-care (01) ==
LOC: SDS 06:11
PROVIDERS: ATTENDING PHYSICIAN Surgery Plastic and Reconstructive Surgery; FAMILY PHYSICIAN Physician Assistant Medical
DX: T85.49XA Other mechanical complication of breast prosthesis and implant, initial encounter (principal); Y93.9 Activity, unspecified; Z90.13 Acquired absence of bilateral breasts and nipples; Z85.3 Personal history of malignant neoplasm of breast
CPT/HCPCS: 19380; 36415; 80053; 85025; 93005; C1729

== ENCOUNTER → 2025-08-04 13:19 | Outpatient (REF) | payer OTHER, SELFPAY ==
[2025-08-04 15:27] LABS: D-Dimer < 0.27 ug/mlFEU (0.00-0.50)
== END ==
LOC: REG 13:19
PROVIDERS: ATTENDING PHYSICIAN Internal Medicine Hematology & Oncology; FAMILY PHYSICIAN Physician Assistant Medical
DX: I82.502 Chronic embolism and thrombosis of unspecified deep veins of left lower extremity (principal); D50.0 Iron deficiency anemia secondary to blood loss (chronic)
CPT/HCPCS: 36415; 85379